=== PATIENT | female | born 1950 | race Caucasian/White ===

== ENCOUNTER 2025-11-10 21:45 | Inpatient (IN) | payer MEDICARE ==
[~2025-11-10] VITALS: Ht 160 cm; Wt 104.0 kg
[~2025-11-10 21:45] MED LIST: ATOR20TA PO; FURO1TAB31 PO; GLIP5TAB21 PO; INSLANTI SC; METF-929 PO; METO-158 PO; PIOG1TAB36 PO; VALS160T6 PO
--- NOTE | 2025-11-10 22:12 | ECG ---
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
--- NOTE | 2025-11-10 22:38 | ED.PDOC ---
History of Present Illness HPI Comments 75 year-old female who presents to the ED via EMS with a chief complaint of chest pain with associated symptoms of dizziness as of X1 hour ago. Patient states chest pain is constant, radiating across her chest. Patient reports being discharged from [facility] X6 hours ago, where she was admitted for Afib with associated symptoms of dizziness, SOB, and chest pain. Patient has a PMHx of Afib, HTN, Hyperlipidemia, DM, and CHF. Patient is taking Lasix. Upon ED arrival, patients BG levels were 547. Patient has no further complaints or modifying factors at this time. REVIEW OF SYSTEMS: General: No fever, no chills, or fatigue HEENT: No sore throat, no earache, no congestion, no neck pain. Cardiac: (+) chest pain, no palpitations Lungs: No shortness of breath, no cough. GI: No nausea, no vomiting, no diarrhea, no constipation, no abdominal pain : No dysuria, frequency, or urgency. No hematuria. Musculoskeletal: No joint pain , no joint swelling, no extremity edema. Skin: No rash, no itching. Neuro: (+) weakness, No headache, no dizziness (And as sated in HPI) PHYSICAL EXAM: General: Awake, alert and oriented. No acute distress. Skin: Skin in warm, dry and intact. Appropriate color for ethnicity. HEENT: The head is normocephalic and atraumatic. Conjunctivae are clear without exudates or hemorrhage. Sclera is non-icteric. Eyelids are normal in appearance without swelling or lesions. Oral mucosa is pink and moist Neck: The neck is supple with normal range of motion. No JVD. Cardiac: Heart rate and rhythm are normal. No murmurs, gallops, or rubs are auscultated. Respiratory: No signs of respiratory distress. Diminished breath sounds bilaterally. Abdominal: Abdomen is soft, non-tender without distention, guarding or rigidity. Bowel sounds are present and normoactive in all four quadrants. Extremities: 2+ pitting lower extremity edema Neurological: The patient is awake, alert and oriented to person, place, and time with normal speech. Speech is clear. There is no facial asymmetry. Chief Complaint: Chest Pain Time Seen by MD: 22:07 Reviewed Notes: Medications, Allergies Allergies: Coded Allergies: NO KNOWN ALLERGIES (Unverified , 11/10/25) Information Source: Patient Mode of Arrival: EMS Severity: Moderate Duration: Since onset Past Medical History PAST MEDICAL HISTORY: AFIB, CHF, DM, High Lipids, HTN Surgical History: Unknown Social History Smoker: Non-Smoker Alcohol: Denies ETOH Use Drugs: Denies Drug Use Lives In: Home Was a procedure done? Was a procedure done?: No EKG EKG : Pulse Rate (adult): 157 [place]: Normal Comments Supraventricular Tachycardia, 334 QT, 540 QTc Differential Dx Considerations may include: Cardiac tamponade, hypovolemia, tension pneumothorax, myocardial infarction, pulmonary embolism, hemorrhagic shock, trauma, cardiac arrhythmia, hypoglycemia, CVA, hypothermia, hypo anemia, hyperkalemia, other X-Ray, Labs, Meds, VS Vital Signs Date Time Temp Pulse Resp B/P (MAP) Pulse Ox O2 Delivery O2 Flow Rate FiO2 11/11/25 01:00 60 15 99/66 (77) 94 11/11/25 00:30 57 20 117/56 (76) 96 11/11/25 00:00 58 11/11/25 00:00 58 22 117/58 (77) 96 11/10/25 23:50 72 20 129/56 (80) 96 11/10/25 23:48 160 99/57 11/10/25 23:45 158 13 99/57 (71) 96 11/10/25 23:40 161 20 112/73 (86) 96 11/10/25 23:40 63 129/56 11/10/25 23:36 162 106/70 11/10/25 23:35 163 12 99/64 (76) 96 11/10/25 23:30 164 19 115/74 (88) 96 11/10/25 23:14 157 11/10/25 23:07 157 11/10/25 22:38 69 11/10/25 22:07 69 11/10/25 21:55 Nasal Cannula* 2 28 11/10/25 21:55 97.9 67 21 134/35 (68) 94 97.9 11/10/25 21:51 97.7 66 18 116/74 95 97.7 Lab Test 11/11/25 00:59 11/10/25 23:17 11/10/25 22:50 11/10/25 22:00 Range/Units Troponin I High Sensitivity 27 15 12 </=34 ng/L Blood Gas Specimen Type Arterial Blood Gas Sample Site Right radial Blood Gas Patient Temperature 31.0 Arterial Blood Date Drawn [id number] Arterial Blood pH 7.490 H 7.350-7.450 Arterial Blood Partial Pressure CO2 38.1 32.0-45.0 mmHg Arterial Blood Partial Pressure O2 99.9 83.0-108.0 mmHg Arterial Blood HCO3 28.4 H 21.0-28.0 mmol/L Arterial Blood Oxygen Saturation 97.6 94.0-98.0 % Arterial Blood Base Excess 4.8 H -2.0-3.0 mmol/L Arterial Blood Oxyhemoglobin 96.2 94.0-98.0 % Arterial Blood Carboxyhemoglobin 0.9 0.5-1.5 % Arterial Blood Methemoglobin 0.5 0.0-1.5 % Arterial Blood Deoxyhemoglobin 2.4 0.0-5.0 % Ariel Test Yes Blood Gas Total Hemoglobin 11.90 L 12.0-16.0 g/dL Blood Gas Liter Flow 2.00 Blood Gas Modality Nasal cannula FiO2 % 28.0 Blood Gas Comments Blood Gas Critical Value Read Back Yes Blood Gas Notified Whom carina Szymanski Blood Gas Notified Time [id number] Blood Gas Notified By shani Vallecillo White Blood Count 4.5 4.4-10.8 10^3/uL Red Blood Count 4.02 4.0-5.20 10^6/uL Hemoglobin 10.6 L 12.2-16.2 g/dL Hematocrit 33.4 L 36.0-46.0 % Mean Corpuscular Volume 83.1 80.0-100.0 fL Mean Corpuscular Hemoglobin 26.4 L 28.0-32.0 pg Mean Corpuscular Hemoglobin Concent 31.8 L 32.0-36.0 g/dL Red Cell Distribution Width 15.5 H 11.8-14.3 % Platelet Count 135 L 140-450 10^3/uL Mean Platelet Volume 9.5 6.9-10.8 fL Neutrophils (%) (Auto) 60.7 37.0-80.0 % Lymphocytes (%) (Auto) 20.0 10.0-50.0 % Monocytes (%) (Auto) 17.4 H 0.0-12.0 % Eosinophils (%) (Auto) 1.7 0.0-7.0 % Basophils (%) (Auto) 0.2 0.0-2.0 % Neutrophils # (Auto) 2.7 1.6-8.6 10 ^3/uL Lymphocytes # (Auto) 0.9 0.4-5.4 10 ^3/uL Monocytes # (Auto) 0.8 0-1.3 10 ^3/uL Eosinophils # (Auto) 0.1 0-0.8 10 ^3/uL Basophils # (Auto) 0 0-0.2 10 ^3/uL Nucleated Red Blood Cells 0.1 % Sodium Level 141 136-145 mmol/L Potassium Level 3.2 L 3.5-5.1 mmol/L Chloride Level 100 98-107 mmol/L Carbon Dioxide Level 30 20-31 mmol/L Anion Gap 11 5-15 Blood Urea Nitrogen 17 9-23 mg/dL Creatinine 0.89 0.550-1.02 mg/dL Glomerular Filtration Rate Calc 67 >90 mL/min BUN/Creatinine Ratio 19.1 10.0-20.0 Serum Glucose 351 H 74-106 mg/dL Calcium Level 9.7 8.7-10.4 mg/dL Magnesium Level 1.7 1.6-2.6 mg/dL B-Type Natriuretic Peptide 297.91 0-100 pg/mL Beta-Hydroxybutyric Acid 0.118 < 0.4 mmol/L Current Medications Medications (Trade) Dose Ordered Sig/Gail Route Start Time Stop Time Status Last Admin Metoprolol Tartrate (Lopressor) 5 mg Q5M IV 11/10/25 23:30 11/11/25 00:00 DC 11/10/25 23:48 Potassium Chloride (Klor-Con Tablet) 40 meq ONCE ONCE PO 11/11/25 00:15 11/11/25 00:17 DC 11/11/25 00:15 Potassium Chloride 100 ml @ 50 mls/hr Q2H IV 11/11/25 00:15 11/11/25 04:14 11/11/25 01:03 Time of 1ST Reevaluation: 22:19 Reevaluation 1ST: Unchanged Patient Education/Counseling: Need For Follow Up Family Education/Counseling: No Family Present SEPSIS Sepsis Screen Date sepsis recognized/suspect: Nov 10, 2025 Time Sepsis recognized/suspect: 2143 Recent Procedure: No On Antibiotic Therapy: No Respiratory Rate >20: No Heart Rate >90: No Temp<36 C (96.8 F) or >38.3 C: No SBP <90 or MAP <65 mmHG: No New Acute Mental Status Change: No Is the patient on CPAP, BIPAP,: No Physician Orders Electrocardigram (11/11/25 00:54) Chest Xray 1 View (11/10/25 23:05) Abg W/ Co-Ox (11/10/25 23:05) Urinalysis (11/10/25 23:05) Potassium Chl 20meq/100ml (11/11/25 00:15) Vital Signs Date Time Temp Pulse Resp B/P (MAP) Pulse Ox O2 Delivery O2 Flow Rate FiO2 11/11/25 01:00 60 15 99/66 (77) 94 11/11/25 00:30 57 20 117/56 (76) 96 11/11/25 00:00 58 11/11/25 00:00 58 22 117/58 (77) 96 11/10/25 23:50 72 20 129/56 (80) 96 11/10/25 23:48 160 99/57 11/10/25 23:45 158 13 99/57 (71) 96 11/10/25 23:40 161 20 112/73 (86) 96 11/10/25 23:40 63 129/56 11/10/25 23:36 162 106/70 11/10/25 23:35 163 12 99/64 (76) 96 11/10/25 23:30 164 19 115/74 (88) 96 11/10/25 23:14 157 11/10/25 23:07 157 11/10/25 22:38 69 11/10/25 22:07 69 11/10/25 21:55 Nasal Cannula* 2 28 11/10/25 21:55 97.9 67 21 134/35 (68) 94 97.9 11/10/25 21:51 97.7 66 18 116/74 95 97.7 Laboratory Tests Test 11/10/25 22:00 White Blood Count 4.5 10^3/uL (4.4-10.8) Medications Medications Dose Ordered Sig/Gail Route Start Time Stop Time Status Last Admin Dose Admin Metoprolol Tartrate 5 mg Q5M IV 11/10/25 23:30 11/11/25 00:00 DC 11/10/25 23:48 Potassium Chloride 40 meq ONCE ONCE PO 11/11/25 00:15 11/11/25 00:17 DC 11/11/25 00:15 Potassium Chloride 100 ml @ 50 mls/hr Q2H IV 11/11/25 00:15 11/11/25 04:14 11/11/25 01:03 Departure 1 Departure Time of Disposition: 00:07 Impression: Primary Impression: Chest pain Additional Impressions: Hyperglycemia CHF (congestive heart failure) Metabolic alkalosis Hypokalemia Anemia Disposition: 09 ADMITTED INPATIENT Condition: Serious Comments 75-year-old female who presented with chest pain During the ED observation she had an episode of SVT with a heart rate in the 160s Converted to sinus with improved heart rate after metoprolol. Blood pressure soft Patient admitted to hospitalist service for further treatment, evaluation and monitoring. Critical Care Note Critical Care Time?: Yes (35 min-critical care time only) Stability Stability form required: No Heart Score Heart Score: Heart Score Response (Comments) Value History Slightly Suspicious 0 EKG Normal 0 Age >65 2 Risk Factors >3 or Hx ASHD 2 Troponin Normal limit 0 Total 4 I personally scribed for CARINA MACE MD [email or web address]) on 11/10/25 at 22:38. Electronically submitted by Estelle Valera ([email or web address]). I personally scribed for CARINA MACE MD ([email or web address]) on 11/10/25 at 23:14. Electronically submitted by Estelle Valera ([email or web address]). CARINA MACE MD Nov 10, 2025 22:38
[2025-11-10 23:16] LABS: Hematocrit 33.4 % (36.0-46.0); Hemoglobin 10.6 g/dL (12.2-16.2); Mean Corpuscular Hemoglobin 26.4 pg (28.0-32.0); Mean Corpuscular Volume 83.1 fL (80.0-100.0); Nucleated Red Blood Cells % 0.1 %
[2025-11-10 23:21] LABS: Chloride 100 mmol/L (98-107); Sodium 141 mmol/L (136-145)
[2025-11-10 23:22] LABS: Anion Gap 11 (5-15); Calcium 9.7 mg/dL (8.7-10.4); Carbon Dioxide 30 mmol/L (20-31)
[2025-11-10 23:23] LABS: Potassium 3.2 mmol/L (3.5-5.1)
[2025-11-10 23:27] LABS: Base Excess 4.8 mmol/L (-2.0-3.0)
[2025-11-10 23:27] LABS: BUN/Creatinine Ratio 19.1 (10.0-20.0); Blood Urea Nitrogen 17 mg/dL (9-23)
[2025-11-10 23:28] LABS: Magnesium 1.7 mg/dL (1.6-2.6)
[2025-11-10 23:36] LABS: Glucose 351 mg/dL (74-106)
[2025-11-10] MEDS: METOPROLOL TARTRATE 1MG/1ML-5ML VIAL IV SCH (23:36)
--- NOTE | 2025-11-10 23:47 | DVH ---
CHEST RADIOGRAPH INDICATION: Chest pain TECHNIQUE: Single frontal view of the chest was obtained COMPARISON: None FINDINGS: Cardiac silhouette is enlarged. Mild prominence of the pulmonary vasculature. Mild bibasilar atelectasis. Bones and soft tissues demonstrate no significant abnormality. IMPRESSION: Mild pulmonary venous congestion.
[2025-11-11] VITALS (9 sets, daily range): BP systolic 118–143; BP diastolic 56–73; PULSE 57–86; RESP 17–19; TEMP 96.9–98; O2SAT 92–100
[2025-11-11] MEDS: POTASSIUM CHL 20 Meq TABLET PO ONE (00:15)
--- NOTE | 2025-11-11 00:20 | ECG ---
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
[2025-11-11] MEDS: POTASSIUM CHL 20MEQ/100ML 100 ML IV SCH (01:03)
[2025-11-11] MEDS ORDERED: ACETAMINOPHEN 325 MG TAB PO PRN (01:15)
[2025-11-11] MEDS ORDERED: NITROGLYCERIN 0.4 MG SL TAB SL PRN (01:15)
[2025-11-11] MEDS ORDERED: ONDANSETRON HCL 4 MG/2 ML VIAL IV PRN (01:15)
[2025-11-11] MEDS ORDERED: HYDROcodone-ACET 5/325MG TAB PO PRN (01:15)
[2025-11-11] MEDS ORDERED: MORPHINE SULFATE INJ 2 MG/ml SYRG IV PRN (01:15)
[2025-11-11] MEDS ORDERED: DEXTROSE (50%) 50ML SYRG IV PRN (01:15)
--- NOTE | 2025-11-11 01:27 | DVHHP2 ---
History of Present Illness Reason for Visit: Chest pain History of Present Illness 75-year-old female presents for evaluation of chest pain. Patient reports being admitted to [place] for three days for atrial fibrillation and being discharged today. When she got home today subsequently she developed pain across entire chest with associated dizziness she reports mild shortness for breath as well. No other acute complaints reported. On arrival patient's heart rate was noted to be in SVT and converted after a dose of metoprolol. Past Medical History AFib, hypertension, SVT, dyslipidemia, diabetes mellitus, CHF Family History Noncontributory Smoke: No ALCOHOL: none Drugs: None Lives: with Family Review of Systems Review of Systems Review of systems are currently negative otherwise addressed in HPI. Allergies: Coded Allergies: NO KNOWN ALLERGIES (Unverified , 11/10/25) Medications Current Medications Medications Dose Ordered Sig/Gail Route Start Time Stop Time Status Last Admin Dose Admin Potassium Chloride 100 ml @ 50 mls/hr Q2H IV 11/11/25 00:15 11/11/25 04:14 11/11/25 01:03 50 MLS/HR Metoprolol Tartrate 50 mg BID PO 11/11/25 10:00 Furosemide 40 mg BIDD PO 11/11/25 06:00 Apixaban 5 mg BID PO 11/11/25 10:00 Valsartan 80 mg DAILY PO 11/11/25 10:00 Atorvastatin Calcium 20 mg HS PO 11/11/25 22:00 Hydrochlorothiazide 12.5 mg DAILY PO 11/11/25 10:00 Diagnostic Test (Pha) 1 strip ACHS 11/11/25 07:00 Insulin Human Regular ACHS SC 11/11/25 07:00 Dextrose 50 ml UD PRN IV 11/11/25 01:15 Acetaminophen/ Hydrocodone Bitart 1 tab Q6HP PRN PO 11/11/25 01:15 Ondansetron HCl 4 mg Q4HP PRN IV 11/11/25 01:15 Acetaminophen 650 mg Q6HP PRN PO 11/11/25 01:15 Nitroglycerin 0.4 mg Q5MINP PRN SL 11/11/25 01:15 Morphine Sulfate 2 mg Q30M PRN IV 11/11/25 01:15 Exam Vital Signs Vital Signs Date Time Temp Pulse Resp B/P (MAP) Pulse Ox O2 Delivery O2 Flow Rate FiO2 11/11/25 01:13 56 11/10/25 23:48 99/57 11/10/25 21:55 Nasal Cannula* 2 28 11/10/25 21:55 97.9 21 94 97.9 Exam Gen: 75-year-old female in mild distress. Skin: Warm, dry, normal color and texture, no rash. HEENT: Normocephalic atraumatic, mucous membranes moist and pink. Neck: Cervical and supraclavicular nodes normal without enlargement, trachea is midline, thyroid gland is normal without masses. Pulmonary: Clear to auscultation and percussion bilaterally. Cardiac: Regular rate and rhythm. No murmur Abdomen: Soft, nontender, nondistended, bowel sounds present all 4 quadrants, no guarding, no rigidity, no organomegaly. Extremities: No cyanosis, clubbing, no edema Neuro: Cranial nerves II through XII grossly intact, normal affect and speech, no focal motor deficits. Labs/Xrays ORDERING PHYSICIAN: CARINA MACE MD PROCEDURE(s): CXR1 - CHEST XRAY 1 VIEW REASON: Chest pain ORDER NUMBER(s): [id number], ACCESSION NUMBER(s): [id number] CHEST RADIOGRAPH INDICATION: Chest pain TECHNIQUE: Single frontal view of the chest was obtained COMPARISON: None FINDINGS: Cardiac silhouette is enlarged. Mild prominence of the pulmonary vasculature. Mild bibasilar atelectasis. Bones and soft tissues demonstrate no significant abnormality. IMPRESSION: Mild pulmonary venous congestion. Labs Test 11/11/25 00:59 11/10/25 23:17 11/10/25 22:00 Range/Units Blood Gas Specimen Type Arterial Blood Gas Sample Site Right radial Blood Gas Patient Temperature 31.0 Arterial Blood Date Drawn [id number] Arterial Blood pH 7.490 H 7.350-7.450 Arterial Blood Partial Pressure CO2 38.1 32.0-45.0 mmHg Arterial Blood Partial Pressure O2 99.9 83.0-108.0 mmHg Arterial Blood HCO3 28.4 H 21.0-28.0 mmol/L Arterial Blood Oxygen Saturation 97.6 94.0-98.0 % Arterial Blood Base Excess 4.8 H -2.0-3.0 mmol/L Arterial Blood Oxyhemoglobin 96.2 94.0-98.0 % Arterial Blood Carboxyhemoglobin 0.9 0.5-1.5 % Arterial Blood Methemoglobin 0.5 0.0-1.5 % Arterial Blood Deoxyhemoglobin 2.4 0.0-5.0 % Ariel Test Yes Blood Gas Total Hemoglobin 11.90 L 12.0-16.0 g/dL Blood Gas Liter Flow 2.00 Blood Gas Modality Nasal cannula FiO2 % 28.0 Blood Gas Comments Blood Gas Critical Value Read Back Yes Blood Gas Notified Whom carina Szymanski Blood Gas Notified Time [id number] Blood Gas Notified By Concrete Worker shani barnes White Blood Count 4.5 4.4-10.8 10^3/uL Red Blood Count 4.02 4.0-5.20 10^6/uL Hemoglobin 10.6 L 12.2-16.2 g/dL Hematocrit 33.4 L 36.0-46.0 % Mean Corpuscular Volume 83.1 80.0-100.0 fL Mean Corpuscular Hemoglobin 26.4 L 28.0-32.0 pg Mean Corpuscular Hemoglobin Concent 31.8 L 32.0-36.0 g/dL Red Cell Distribution Width 15.5 H 11.8-14.3 % Platelet Count 135 L 140-450 10^3/uL Mean Platelet Volume 9.5 6.9-10.8 fL Neutrophils (%) (Auto) 60.7 37.0-80.0 % Lymphocytes (%) (Auto) 20.0 10.0-50.0 % Monocytes (%) (Auto) 17.4 H 0.0-12.0 % Eosinophils (%) (Auto) 1.7 0.0-7.0 % Basophils (%) (Auto) 0.2 0.0-2.0 % Neutrophils # (Auto) 2.7 1.6-8.6 10 ^3/uL Lymphocytes # (Auto) 0.9 0.4-5.4 10 ^3/uL Monocytes # (Auto) 0.8 0-1.3 10 ^3/uL Eosinophils # (Auto) 0.1 0-0.8 10 ^3/uL Basophils # (Auto) 0 0-0.2 10 ^3/uL Nucleated Red Blood Cells 0.1 % Sodium Level 141 136-145 mmol/L Potassium Level 3.2 L 3.5-5.1 mmol/L Chloride Level 100 98-107 mmol/L Carbon Dioxide Level 30 20-31 mmol/L Anion Gap 11 5-15 Blood Urea Nitrogen 17 9-23 mg/dL Creatinine 0.89 0.550-1.02 mg/dL Glomerular Filtration Rate Calc 67 >90 mL/min BUN/Creatinine Ratio 19.1 10.0-20.0 Serum Glucose 351 H 74-106 mg/dL Calcium Level 9.7 8.7-10.4 mg/dL Magnesium Level 1.7 1.6-2.6 mg/dL B-Type Natriuretic Peptide 297.91 0-100 pg/mL Beta-Hydroxybutyric Acid 0.118 < 0.4 mmol/L SEPSIS Sepsis Screen Date sepsis recognized/suspect: Nov 10, 2025 Time Sepsis recognized/suspect: 2154 Recent Procedure: No On Antibiotic Therapy: No Respiratory Rate >20: No Heart Rate >90: No Temp<36 C (96.8 F) or >38.3 C: No SBP <90 or MAP <65 mmHG: No New Acute Mental Status Change: No Is the patient on CPAP, BIPAP,: No Physician Orders Troponin-I Hs (11/11/25 00:54) Electrocardigram (11/11/25 00:54) Chest Xray 1 View (11/10/25 23:05) Abg W/ Co-Ox (11/10/25 23:05) Urinalysis (11/10/25 23:05) Potassium Chl 20meq/100ml (11/11/25 00:15) Basic Metabolic Panel (11/11/25 04:00) Metoprolol Tartrate Tablet (Lopressor Ta (11/11/25 10:00) Furosemide Tablet (Lasix Tablet) (11/11/25 06:00) Apixaban (Eliquis) (11/11/25 10:00) Valsartan (Diovan) (11/11/25 10:00) Atorvastatin (Lipitor) (11/11/25 22:00) Hydrochlorothiazide Tablet (Hydrochlorot (11/11/25 10:00) * Cardiology Consult (11/11/25 01:06) Glucose Blood (Accu-Chek Comfort Curve T (11/11/25 07:00) Insulin R (Human) (Insulin R) (11/11/25 07:00) Dextrose 50% Syringe (11/11/25 01:15) Admit (11/11/25 01:06) Hydrocodone-Acet 5/325mg Tab ([place] 5/32 (11/11/25 01:15) Ondansetron Hcl (Zofran) (11/11/25 01:15) Cardiac Diet-2gna,Lofat,Lochol (11/11/25 Breakfast) Echo 2d Mode Cardiac Dop (11/11/25 01:06) Condition: Fair (11/11/25 01:06) Acetaminophen Tablet (Tylenol Tablet) (11/11/25 01:15) Bedrest With Bathroom Privileg (11/11/25 01:06) Nitroglycerin Sublingual (Ntrostat Subli (11/11/25 01:15) Morphine Sulfate Injection (11/11/25 01:15) Stat Ekg For Chest Pain (11/11/25 01:06) Notify Of Changes From Base (11/11/25 01:06) Channel Executive For 24 Hours (11/11/25 01:06) Emergency Dysrhythmia Protocol (11/11/25 01:06) Rhythm Strips Once Every Shift (11/11/25 01:06) Oxygen By Nasal Cannula (11/11/25 01:06) Vital Signs Date Time Temp Pulse Resp B/P (MAP) Pulse Ox O2 Delivery O2 Flow Rate FiO2 11/11/25 01:13 56 11/11/25 00:00 58 11/10/25 23:48 160 99/57 11/10/25 23:40 63 129/56 11/10/25 23:36 162 106/70 11/10/25 23:14 157 11/10/25 23:07 157 11/10/25 22:38 69 11/10/25 22:07 69 11/10/25 21:55 Nasal Cannula* 2 28 11/10/25 21:55 97.9 67 21 134/35 (68) 94 97.9 11/10/25 21:51 97.7 66 18 116/74 95 97.7 Laboratory Tests Test 11/10/25 22:00 White Blood Count 4.5 10^3/uL (4.4-10.8) Medications Medications Dose Ordered Sig/Gail Route Start Time Stop Time Status Last Admin Dose Admin Metoprolol Tartrate 5 mg Q5M IV 11/10/25 23:30 11/11/25 00:00 DC 11/10/25 23:48 5 MG Potassium Chloride 40 meq ONCE ONCE PO 11/11/25 00:15 11/11/25 00:17 DC 11/11/25 00:15 40 MEQ Potassium Chloride 100 ml @ 50 mls/hr Q2H IV 11/11/25 00:15 11/11/25 04:14 11/11/25 01:03 50 MLS/HR Assessment/Plan Assessment/Plan Assessment Chest pain SVT Diabetes mellitus Congestive heart failure Hypertension Hypokalemia Plan Admit the patient to telemetry to the hospitalist Echocardiogram pending Cardiology consultation Resume home medications Replete electrolytes Continue treatment per orders Plan discussed with: Patient My Orders Orders - ELISE SIFUENTES AGACNP Procedure Category Date Status Time Basic Metabolic Panel LAB 11/11/25 Logged 04:00 Metoprolol Tartrate PHA 11/11/25 In Process Tablet (Lopressor Ta 10:00 Furosemide Tablet PHA 11/11/25 In Process (Lasix Tablet) 06:00 Apixaban (Eliquis) PHA 11/11/25 In Process 10:00 Valsartan (Diovan) PHA 11/11/25 In Process 10:00 Atorvastatin (Lipitor) PHA 11/11/25 In Process 22:00 Hydrochlorothiazide PHA 11/11/25 In Process Tablet (Hydrochlorot 10:00 * Cardiology Consult CONS 11/11/25 Transmitted 01:06 Glucose Blood PHA 11/11/25 In Process (Accu-Chek Comfort 07:00 Insulin R (Human) PHA 11/11/25 In Process (Insulin R) 07:00 Dextrose 50% Syringe PHA 11/11/25 In Process 01:15 Admit ADMIT 11/11/25 Transmitted 01:06 Hydrocodone-Acet PHA 11/11/25 In Process 5/325mg Tab ([place] 01:15 Ondansetron Hcl PHA 11/11/25 In Process (Zofran) 01:15 Cardiac DIET 11/11/25 Transmitted Diet-2gna,Lofat,Lochol Breakfast Echo 2d Mode Cardiac US 11/11/25 Logged DOP 01:06 Condition: Fair CARRI[facility]O 11/11/25 In Process 01:06 Acetaminophen Tablet [facility] 11/11/25 In Process (Tylenol Tablet) 01:15 Bedrest With Bathroom [facility] 11/11/25 In Process Privileg 01:06 Nitroglycerin [facility] 11/11/25 In Process Sublingual (Ntrostat 01:15 Morphine Sulfate [facility] 11/11/25 In Process Injection 01:15 Stat Ekg For Chest [facility] 11/11/25 In Process Pain 01:06 Notify Md Of Changes [facility] 11/11/25 In Process From Base 01:06 Channel Executive For [facility] 11/11/25 In Process 24 Hours 01:06 Emergency Dysrhythmia [facility] 11/11/25 In Process Protocol 01:06 Rhythm Strips Once [facility] 11/11/25 In Process Every Shift 01:06 Oxygen By Nasal 11/11/25 Transmitted Cannula 01:06 Date of Service: Nov 11, 2025 Billing Provider: ELISE SIFUENTES Common Visit Codes: [id number] INP/OBS CARE (HIGH) ELISE SIFUENTES Nov 11, 2025 01:27
[2025-11-11 02:27] LABS: Urine Budding Yeast OCCASIONAL /hpf (None Seen); Urine Protein, UAD TRACE (Negative)
[2025-11-11] MEDS ORDERED: APIX5TAB PO (04:53)
[2025-11-11] MEDS ORDERED: LOSA-535 PO (04:53)
[2025-11-11] MEDS ORDERED: DAPA1TAB4 PO (04:53)
[2025-11-11] MEDS ORDERED: METF-370 PO (04:53)
[2025-11-11] MEDS: ACCU-CHEK COMFORT CURVE STRIP VI SCH (05:26)
[2025-11-11] MEDS: FUROSEMIDE 40 MG TAB PO SCH (05:26)
[2025-11-11] MEDS: InsuLIN REG 1unit/0.01ml Soln (100units/ml) SC SCH (05:30)
[2025-11-11 06:05] LABS: Hematocrit 31.9 % (36.0-46.0); Hemoglobin 10.3 g/dL (12.2-16.2); Mean Corpuscular Hemoglobin 26.7 pg (28.0-32.0); Mean Corpuscular Volume 82.4 fL (80.0-100.0); Nucleated Red Blood Cells % 0.0 %
[2025-11-11 06:22] LABS: Anion Gap 9 (5-15); Chloride 100 mmol/L (98-107); Potassium 3.7 mmol/L (3.5-5.1); Sodium 141 mmol/L (136-145)
[2025-11-11 06:24] LABS: Calcium 9.6 mg/dL (8.7-10.4)
[2025-11-11 06:28] LABS: BUN/Creatinine Ratio 22.9 (10.0-20.0); Blood Urea Nitrogen 19 mg/dL (9-23)
[2025-11-11 06:30] LABS: Carbon Dioxide 32 mmol/L (20-31); Glucose 260 mg/dL (74-106)
[2025-11-11] MEDS: MAGNESIUM SULFATE 1GM/100ML 100 ML IV ONE (08:46)
[2025-11-11] MEDS: VALSARTAN 80 MG TAB PO SCH (08:47)
[2025-11-11] MEDS: POTASSIUM EFFERVESENT TAB 25 MEQ PO ONE (08:47)
[2025-11-11] MEDS: APIXABAN 5 MG TAB PO SCH (08:47)
[2025-11-11] MEDS: METOPROLOL TARTRATE 50 MG TAB PO SCH (08:48)
[2025-11-11] MEDS: hydroCHLOROthiazide 25 MG TAB PO SCH (08:48)
--- NOTE | 2025-11-11 11:18 | DVHINCON2 ---
Date Seen: Nov 11, 2025 Referring Physician MIAH Mueller Reason for Consultation Svt History of Present Illness Patient is a 75-year-old female was brought to the hospital with a chief complaint of chest pain and shortness of Breath. Patient reported that she recently discharged from [facility] where she was diagnosed with atrial fibrillation, congestive heart failure. About a week ago patient had worsening shortness of breath Functional Class III and at that time went to [facility] Emergency and was admitted for further evaluation. She came home yesterday and while lying down started to have chest pain with the left side of the chest was radiated across the chest, pressure-like, lasted for about half an hour and relieved on its own. Patient had associated shortness of breath and had mild orthopnea, bilateral lower extremity swelling. On arrival to the hospital 1st EKG showed patient to be in supraventricular tachycardia, repeat EKG showed sinus rhythm with a PACs and later showed sinus rhythm. On telemetry patient was seen to be in episodes of atrial fibrillation rate controlled. Patient denied any chest pain while in the hospital and no shortness a breath while at rest on room air. Past Medical History Insulin-dependent type 2 diabetes mellitus, atrial fibrillation recently diagnos ed, hyperlipidemia, congestive heart failure Past Surgical History Denies Family History: Cardiovascular disease G8 FATHER Family History No significant family history Social History Denies smoking, alcohol, drug use Allergies: Coded Allergies: NO KNOWN ALLERGIES (Unverified , 11/10/25) Home Meds Reported Medications Insulin Glargine (Lantus) 100 Unit/Ml Inj, 100 UNIT SC, INJ 11/11/25 Metoprolol Tartrate (Metoprolol Tartrate) 50 Mg Tab, 50 MG PO BID, TAB 11/11/25 Metformin Hydrochloride (Metformin Hcl) 500 Mg Tab, 1000 MG PO DAILY for 30 Days, MG 11/11/25 Losartan Potassium (Losartan Potassium) 100 Mg Tab, 100 MG PO DAILY for 30 Days, MG 11/11/25 Furosemide (Lasix) 40 Mg Tab, 40 MG PO BID, TAB 11/11/25 Dapagliflozin Propanediol (Farxiga) 10 Mg Tab, 10 MG PO, TAB 11/11/25 Atorvastatin Calcium (Lipitor) 20 Mg Tab, 1 TAB PO DAILY, #90 TAB 1 Refill 11/11/25 Apixaban Base (ELIQUIS) 5 Mg Tab, 10 MG PO DAILY for 7 Days, #14 TAB 10MG BID X 7 DAYS THEN 5MG PO BID FOR AT LEAST 6 MONTHS FOR DVT/PE TREATMENT 11/11/25 Current Medications Current Medications Medications (Trade) Dose Ordered Sig/Gail Route PRN Reason Start Time Stop Time Status Last Admin Metoprolol Tartrate (Lopressor) 5 mg Q5M IV 11/10/25 23:30 11/11/25 00:00 DC 11/10/25 23:48 Potassium Chloride 100 ml @ 50 mls/hr Q2H IV 11/11/25 00:15 11/11/25 04:14 DC 11/11/25 03:50 Metoprolol Tartrate (Lopressor Tablet) 50 mg BID PO 11/11/25 10:00 11/11/25 08:48 Furosemide (Lasix Tablet) 40 mg BIDD PO 11/11/25 06:00 11/11/25 05:26 Apixaban (Eliquis) 5 mg BID PO 11/11/25 10:00 11/11/25 08:47 Valsartan (Diovan) 80 mg DAILY PO 11/11/25 10:00 11/11/25 08:47 Atorvastatin Calcium (Lipitor) 20 mg HS PO 11/11/25 22:00 Hydrochlorothiazide (hydroCHLOROthiazide TABLET) 12.5 mg DAILY PO 11/11/25 10:00 11/11/25 10:56 DC 11/11/25 08:48 Diagnostic Test (Pha) (Accu-Chek Comfort Curve T) 1 strip ACHS 11/11/25 07:00 11/11/25 05:26 Insulin Human Regular (InsuLIN R) ACHS SC 11/11/25 07:00 11/11/25 05:30 Dextrose 50 ml UD PRN IV Blood Sugar LESS THAN 60 11/11/25 01:15 Acetaminophen/ Hydrocodone Bitart ([place] 5/325MG Tab) 1 tab Q6HP PRN PO MODERATE PAIN (4-6 PAIN SCALE) 11/11/25 01:15 Ondansetron HCl (Zofran) 4 mg Q4HP PRN IV NAUSEA / VOMITING 11/11/25 01:15 Acetaminophen (Tylenol Tablet) 650 mg Q6HP PRN PO PAIN SCALE 1-3 OR TEMP>100.4 11/11/25 01:15 Nitroglycerin (Ntrostat Sublingual) 0.4 mg Q5MINP PRN SL FOR CHEST PAIN 11/11/25 01:15 Morphine Sulfate 2 mg Q30M PRN IV FOR CHEST PAIN 11/11/25 01:15 Review of Systems Patient seen and examined with the bedside Reports shortness of breath has improved and is able to walk to the restroom without feeling short of breath Denies any chest pain Complains of dry cough with some episodes of white clear phlegm which has been going on for the last 2 months after she went on a cruise Vital Signs Vital Signs Date Time Temp Pulse Resp B/P (MAP) Pulse Ox O2 Delivery O2 Flow Rate FiO2 11/11/25 08:48 139/73 11/11/25 08:48 63 11/11/25 08:42 97.9 19 92 97.9 11/11/25 07:40 Room Air* 0 21 Physical Exam Skin - Patients skin is warm and dry. HEENT - normocephalic, atraumatic, moist mucous membranes, no scleral icterus, no conjunctival pallor. Neck - full ROM, no LAD, mildly elevated jugular venous pulsation Pulmonary - B/L clear breath sounds with a minimal basilar rales cardiovascular - regular S1,S2 heard. peripheral pulses normal radial 2+, pedal 2+. Bilateral lower extremity 2+ pitting edema GI - soft, nontender abdomen. no hepatospleenomegaly. Bowel sounds normoactive Neurological - Patient is A/O X 4 . Bilateral upper extremity strength 5/5, bilateral lower extremity strength 5/5, no facial droop, normal speech, no tremor, no sensory deficiets. Labs/Diagnostic Data Labs Test 11/11/25 05:16 11/11/25 05:09 11/11/25 01:31 11/11/25 00:59 Range/Units POC Glucose 258 H 70-106 mg/dl White Blood Count 4.1 L 4.4-10.8 10^3/uL Red Blood Count 3.87 L 4.0-5.20 10^6/uL Hemoglobin 10.3 L 12.2-16.2 g/dL Hematocrit 31.9 L 36.0-46.0 % Mean Corpuscular Volume 82.4 80.0-100.0 fL Mean Corpuscular Hemoglobin 26.7 L 28.0-32.0 pg Mean Corpuscular Hemoglobin Concent 32.4 32.0-36.0 g/dL Red Cell Distribution Width 15.8 H 11.8-14.3 % Platelet Count 134 L 140-450 10^3/uL Mean Platelet Volume 10.0 6.9-10.8 fL Neutrophils (%) (Auto) 56.4 37.0-80.0 % Lymphocytes (%) (Auto) 24.8 10.0-50.0 % Monocytes (%) (Auto) 17.4 H 0.0-12.0 % Eosinophils (%) (Auto) 1.2 0.0-7.0 % Basophils (%) (Auto) 0.2 0.0-2.0 % Neutrophils # (Auto) 2.3 1.6-8.6 10 ^3/uL Lymphocytes # (Auto) 1.0 0.4-5.4 10 ^3/uL Monocytes # (Auto) 0.7 0-1.3 10 ^3/uL Eosinophils # (Auto) 0 0-0.8 10 ^3/uL Basophils # (Auto) 0 0-0.2 10 ^3/uL Nucleated Red Blood Cells 0.0 % Sodium Level 141 136-145 mmol/L Potassium Level 3.7 3.5-5.1 mmol/L Chloride Level 100 98-107 mmol/L Carbon Dioxide Level 32 H 20-31 mmol/L Anion Gap 9 5-15 Blood Urea Nitrogen 19 9-23 mg/dL Creatinine 0.83 0.550-1.02 mg/dL Glomerular Filtration Rate Calc 73 >90 mL/min BUN/Creatinine Ratio 22.9 H 10.0-20.0 Serum Glucose 260 H 74-106 mg/dL Hemoglobin A1c 10.8 H <5.7 % A1C Calcium Level 9.6 8.7-10.4 mg/dL Vitamin D 25-Hydroxy 46.1 30.0-100 ng/mL Thyroid Stimulating Hormone (TSH) 1.24 0.55-4.78 uIU/mL Urine Color Light-yellow Yellow Urine Clarity Turbid H Clear Urine pH 5.0 5.0-9.0 Urine Specific [place] 1.012 1.001-1.035 Urine Protein Trace H Negative Urine Ketones Negative Negative Urine Blood 3+ H Negative /uL Urine Nitrite Negative Negative Urine Bilirubin Negative Negative Urine Urobilinogen Normal Negative mg/dL Urine Leukocyte Esterase Negative Negative /uL Urine RBC 225 0 - 4 /hpf Urine Microscopic WBC 5 0-5 /HPF Urine Squamous Epithelial Cells Few <5 /hpf Urine Bacteria None seen None Seen /hpf Urine Hyaline Casts Many 0 - 2 /lpf Urine Yeast (Budding) Occasional None Seen /hpf Urine Glucose Trace Normal mg/dL Troponin I High Sensitivity 27 </=34 ng/L Test 11/10/25 23:17 11/10/25 22:00 Range/Units Blood Gas Specimen Type Arterial Blood Gas Sample Site Right radial Blood Gas Patient Temperature 31.0 Arterial Blood Date Drawn [id number] Arterial Blood pH 7.490 H 7.350-7.450 Arterial Blood Partial Pressure CO2 38.1 32.0-45.0 mmHg Arterial Blood Partial Pressure O2 99.9 83.0-108.0 mmHg Arterial Blood HCO3 28.4 H 21.0-28.0 mmol/L Arterial Blood Oxygen Saturation 97.6 94.0-98.0 % Arterial Blood Base Excess 4.8 H -2.0-3.0 mmol/L Arterial Blood Oxyhemoglobin 96.2 94.0-98.0 % Arterial Blood Carboxyhemoglobin 0.9 0.5-1.5 % Arterial Blood Methemoglobin 0.5 0.0-1.5 % Arterial Blood Deoxyhemoglobin 2.4 0.0-5.0 % Ariel Test Yes Blood Gas Total Hemoglobin 11.90 L 12.0-16.0 g/dL Blood Gas Liter Flow 2.00 Blood Gas Modality Nasal cannula FiO2 % 28.0 Blood Gas Comments Blood Gas Critical Value Read Back Yes Blood Gas Notified Whom francheska Szymanski Blood Gas Notified Time [id number] Blood Gas Notified By Envelope Fold Operator shani barnes Magnesium Level 1.7 1.6-2.6 mg/dL B-Type Natriuretic Peptide 297.91 0-100 pg/mL Beta-Hydroxybutyric Acid 0.118 < 0.4 mmol/L Assessment Acute on chronic congestive heart failure with diastolic dysfunction, NYHA class 3 ( echo from [facility] showed mild LVH, LVEF 65-70% with grade 2 diastolic dysfunction with a high left atrial and right atrial pressure, mild calcific MS) Arrhythmia SVT on presentation, controlled Recently diagnosed atrial fibrillation on Eliquis Hypertensive heart disease with heart failure Insulin-dependent type 2 diabetes mellitus Plan/Recommendation - diuresis with the Lasix 40 b.i.d. IV - strict I&Os - continue rate control with beta roxana - continue anticoagulation with the Eliquis - valsartan, Jardiance Discussed with the patient for over 21 minutes. Plan discussed with Dr. Butcher Plan discussed with: Patient, Daughter NYHA Physical activity limitations: Class3(Marked) ordinary Date of Service: Nov 11, 2025 Billing Provider: YANET BUTCHER Sr., MD Cardiology Common Codes: [id number] INP/OBS CARE (High) KRISTY MAX RESIDENT Nov 11, 2025 11:18
--- NOTE | 2025-11-11 13:30 | DVH ---
XY CHEST TWO VIEWS ROUTINE CLINICAL HISTORY: cough COMPARISON: XY CHEST XRAY 1 VIEW on DOS: 11/10/25 TECHNIQUE: Frontal and lateral view of the chest was obtained FINDINGS: Lines and Tubes: None Lungs: No focal consolidation. Pleura: Small left pleural effusion Cardiomediastinal contours:Cardiomegaly Bones: No acute osseous abnormality. IMPRESSION: Mild pulmonary vascular congestion. Small left pleural effusion
--- NOTE | 2025-11-11 14:21 | ECG ---
[facility] Test Date: 2025-11-11 Test Time: 01:13:38 Pat Name: DARWIN BRANDT [facility] F Facility Maintenance Technician: JEFF : 1950 Requested By: CARINA MACE Order Number: [id number] Reading MD: Corey Owen Measurements Intervals [place] Rate: 56 P: 10 ND: 166 QRS: 5 QRSD: 85 T: -5 QT: 468 QTc: 452 Interpretive Statements Sinus rhythm Atrial premature complex Low voltage, precordial leads Borderline T abnormalities, diffuse leads Electronically Signed On 11-12-2025 17:24:57 PST by Corey Owen Please click the below link to view image of tracing.
[2025-11-11] MEDS: FUROSEMIDE 40 MG/4 ML VIAL IV SCH (17:19)
[2025-11-11] MEDS: EMPAGLIFLOZIN 10 MG TAB PO SCH (17:20)
[2025-11-11] MEDS: LORATADINE 10 MG TAB PO ONE (17:20)
[2025-11-11] MEDS: FAMOTIDINE 20 MG TAB PO ONE (17:20)
[2025-11-11] MEDS: INSULIN LISPRO (HUMAN) 100 UNITS/ML ML SC SCH (17:27)
--- NOTE | 2025-11-11 18:45 | DVHPNRES ---
Progress Note Date Seen: Nov 11, 2025 Resident Creating Document: ANA YIP RESIDENT Medical Necessity Reason Pt with a Central, PICC or Fol: No Subjective Review of Systems This is a 75-year-old female brought to hospital with a chief complaint of chest pain associated with shortness of breaths. Recently discharged from [facility] with diagnosed atrial failure and congestive heart failure. Patient chest pain day before admission which is 7/10 intensity, aggravated on walking or exercise, no relieving factor, the chest wall but no radiation. Patient also bilateral leg swelling for week which is worsen day by day. Patient also having orthopnea, exertional dyspnea. On arrival EKG shows supraventricular shows sinus rhythm with a PACs and letter it sinus rhythm after metoprolol given. Patient admitted on telemetry and cardiology consulted for atrial fibrillation and rate controlled. Patient history of to SVT last year follow-up with cardiology( dr. Almaraz) not on any medication. Past Medical History AFib, hypertension, SVT, dyslipidemia, diabetes mellitus, CHF Family History : Noncontributory Personal history: PCP smoker( smoking) Drugs: Denies any EtOH or illicit drug use Allergy: No known allergy PCP: Dr. Hinton. Evaluated in bedside today. Patient denies any acute distress. On examination lifestyle lower extremity 2+ edema noted. Cardiology consult appreciated. Objective vital signs Vital Sign Date Time Temp Pulse Resp B/P (MAP) Pulse Ox O2 Delivery O2 Flow Rate FiO2 11/11/25 17:19 130/72 11/11/25 16:31 97.7 64 19 100 97.7 11/11/25 07:40 Room Air* 0 21 Total Intake and Output 11/10/25 11/10/25 11/11/25 15:00 23:00 07:00 Intake Total 200 ml Balance 200 ml medications Current Medications Medications Dose Ordered Sig/Gail Route Start Time Stop Time Status Last Admin Dose Admin Metoprolol Tartrate 50 mg BID PO 11/11/25 10:00 11/11/25 08:48 50 MG Apixaban 5 mg BID PO 11/11/25 10:00 11/11/25 08:47 5 MG Valsartan 80 mg DAILY PO 11/11/25 10:00 11/11/25 08:47 80 MG Atorvastatin Calcium 20 mg HS PO 11/11/25 22:00 Diagnostic Test (Pha) 1 strip ACHS 11/11/25 07:00 11/11/25 17:19 1 STRIP Insulin Human Regular ACHS SC 11/11/25 07:00 11/11/25 17:22 8 UNITS Dextrose 50 ml UD PRN IV 11/11/25 01:15 Acetaminophen/ Hydrocodone Bitart 1 tab Q6HP PRN PO 11/11/25 01:15 Ondansetron HCl 4 mg Q4HP PRN IV 11/11/25 01:15 Acetaminophen 650 mg Q6HP PRN PO 11/11/25 01:15 Nitroglycerin 0.4 mg Q5MINP PRN SL 11/11/25 01:15 Morphine Sulfate 2 mg Q30M PRN IV 11/11/25 01:15 Furosemide 40 mg BIDD IV 11/11/25 18:00 11/11/25 17:19 40 MG Insulin Glargine 15 units HS SC 11/11/25 22:00 Insulin Human Lispro 3 units AC SC 11/11/25 17:00 11/11/25 17:27 3 UNITS Empaglifozin 10 mg DAILY PO 11/11/25 16:00 11/11/25 17:20 10 MG Famotidine 20 mg Q12HR PO 11/12/25 10:00 Loratadine 10 mg DAILY PO 11/12/25 10:00 Fluticasone Propionate 50 mcg Q12HR EACHNOSTRI 11/11/25 22:00 Examination Skin - Patients skin is warm and dry. HEENT - normocephalic, atraumatic, moist mucous membranes, no scleral icterus, no conjunctival pallor. Neck - full ROM, no LAD, mildly elevated jugular venous pulsation Pulmonary - B/L clear breath sounds with a minimal basilar rales cardiovascular - regular S1,S2 heard. peripheral pulses normal radial 2+, pedal 2+. Bilateral lower extremity 2+ pitting edema GI - soft, nontender abdomen. no hepatospleenomegaly. Bowel sounds normoactive Neurological - Patient is A/O X 4 . Bilateral upper extremity strength 5/5, bilateral lower extremity strength 5/5, no facial droop, normal speech, no tremor, no sensory deficiets. laboratory and microbiology Laboratory Tests 11/11/25 05:09 Test 11/11/25 05:09 Range/Units Serum Glucose 260 H 74-106 mg/dL Microbiology Date/Time Source Procedure Growth Status 11/11/25 04:00 Nose MRSA Screen - Final Complete Problem List/Assessment/Plan Problem List/Assessment/Plan Acute on chronic congestive heart failure with diastolic dysfunction, NYHA class III ( Echo from [facility] showed mild LVH, LVEF 65-70% with grade 2 diastolic dysfunction with a high left atrial and right atrial pressure, mild calcific MS) Arrhythmia SVT on presentation, controlled Recently diagnosed atrial fibrillation Hypertensive heart disease with heart failure Troponin 12 BNP 297.81 Lasix IV strict I&Os Metoprolol Eliquis Valsartan, Jardiance Nitroglycerin sublingually for chest pain Morphine as needed for chest Monitor blood pressure and labs Insulin-dependent type 2 diabetes mellitus Mixed hyperlipidemia Monitor blood sugar Basal bolus insulin Atorvastatin HbA1c Chronic persistent cough X-ray chest shows no acute cardiopulmonary disease QuantiFERON TB gold test Influenza and COVID test Famotidine Fluticasone nasal Loratadine GI prophylaxis: Famotidine Diet: Carbohydrate consistent DVT prophylaxis: Eliquis Goals of care discussion. More than 23 minute spent with patient, nok- daughter(Yuli) Case discussed with Dr. Casillas Plan discussed with: Patient, Daughter (Yuli), Other My Orders My Orders Orders - ANA YIP Procedure Category Date Status Time Chest Two Views XY 11/11/25 Resulted Routine 11:42 Visit Coding STANDARD RES Billing Provider: CLEVE CASILLAS MD Date of Service if different f: Nov 11, 2025 Common Visit Codes: [id number] INP/OBS CARE (HIGH) Secondary Visit Codes: [id number] CARE PLAN 30 MINUTES ANA YIP Nov 11, 2025 18:45
[2025-11-11 20:50] LABS: COVID19 ANTIGEN SOFIA FIA NEGATIVE (NEGATIVE)
[2025-11-11] MEDS: INSULIN LANTUS (GLARGINE) 1 /0.01ml (100units/ml) SC SCH (21:53)
[2025-11-11] MEDS: ATORVASTATIN 20 MG TAB PO SCH (21:54)
[2025-11-11] MEDS: FLUTICASONE PROP NASAL SPR 0.05 % (50MCG) 16GM EACHNOSTRI SCH (21:55)
[2025-11-12] VITALS (9 sets, daily range): BP systolic 113–141; BP diastolic 58–83; PULSE 58–80; RESP 16–20; TEMP 97.5–98.1; O2SAT 91–97
[2025-11-12 06:09] LABS: Hematocrit 33.9 % (36.0-46.0); Hemoglobin 10.9 g/dL (12.2-16.2); Mean Corpuscular Hemoglobin 26.8 pg (28.0-32.0); Mean Corpuscular Volume 83.0 fL (80.0-100.0); Nucleated Red Blood Cells % 0.1 %
[2025-11-12 06:32] LABS: Alanine Aminotransferase 28 U/L (7-40); Anion Gap 9 (5-15); BUN/Creatinine Ratio 23.5 (10.0-20.0); Blood Urea Nitrogen 20 mg/dL (9-23); Calcium 10.4 mg/dL (8.7-10.4); Chloride 100 mmol/L (98-107); Potassium 3.6 mmol/L (3.5-5.1); Sodium 143 mmol/L (136-145); Total Protein 6.8 g/dL (5.7-8.2)
[2025-11-12 06:34] LABS: Albumin 3.7 g/dL (3.2-4.8); Bilirubin, Total 0.7 mg/dL (0.2-1.0)
[2025-11-12 06:35] LABS: Alkaline Phosphatase 121 U/L (46-116); Carbon Dioxide 34 mmol/L (20-31); Glucose 149 mg/dL (74-106)
[2025-11-12] MEDS: FAMOTIDINE 20 MG TAB PO SCH (09:32)
[2025-11-12] MEDS: LORATADINE 10 MG TAB PO SCH (09:33)
--- NOTE | 2025-11-12 12:36 | DVHPN2 ---
Progress Note Date Seen: Nov 12, 2025 Resident Creating Document: KRISTY MAX RESIDENT Medical Necessity Reason Pt with a Central, PICC or Fol: No Subjective Review of Systems Patient reports shortness of breath has improved significantly No orthopnea or PND and had good sleep last night Objective vital signs Vital Sign Date Time Temp Pulse Resp B/P (MAP) Pulse Ox O2 Delivery O2 Flow Rate FiO2 11/12/25 10:33 78 11/12/25 09:33 148/61 11/12/25 09:00 97.5 18 93 97.5 11/12/25 07:30 Room Air* 0 21 Total Intake and Output 11/11/25 11/11/25 11/12/25 15:00 23:00 07:00 Intake Total 300 ml 300 ml Balance 300 ml 300 ml medications Current Medications Medications Dose Ordered Sig/Gail Route Start Time Stop Time Status Last Admin Dose Admin Metoprolol Tartrate 50 mg BID PO 11/11/25 10:00 11/12/25 09:33 50 MG Apixaban 5 mg BID PO 11/11/25 10:00 11/12/25 09:30 5 MG Valsartan 80 mg DAILY PO 11/11/25 10:00 11/12/25 09:32 80 MG Atorvastatin Calcium 20 mg HS PO 11/11/25 22:00 11/11/25 21:54 20 MG Diagnostic Test (Pha) 1 strip ACHS 11/11/25 07:00 11/12/25 11:54 1 STRIP Insulin Human Regular ACHS SC 11/11/25 07:00 11/12/25 11:53 4 UNITS Dextrose 50 ml UD PRN IV 11/11/25 01:15 Acetaminophen/ Hydrocodone Bitart 1 tab Q6HP PRN PO 11/11/25 01:15 Ondansetron HCl 4 mg Q4HP PRN IV 11/11/25 01:15 Acetaminophen 650 mg Q6HP PRN PO 11/11/25 01:15 Nitroglycerin 0.4 mg Q5MINP PRN SL 11/11/25 01:15 Morphine Sulfate 2 mg Q30M PRN IV 11/11/25 01:15 Furosemide 40 mg BIDD IV 11/11/25 18:00 11/12/25 05:57 40 MG Insulin Glargine 15 units HS SC 11/11/25 22:00 11/11/25 21:53 15 UNITS Insulin Human Lispro 3 units AC SC 11/11/25 17:00 11/12/25 11:53 3 UNITS Empaglifozin 10 mg DAILY PO 11/11/25 16:00 11/12/25 09:33 10 MG Famotidine 20 mg Q12HR PO 11/12/25 10:00 11/12/25 09:32 20 MG Loratadine 10 mg DAILY PO 11/12/25 10:00 11/12/25 09:33 10 MG Fluticasone Propionate 50 mcg Q12HR EACHNOSTRI 11/11/25 22:00 11/12/25 11:50 50 MCG Examination Skin - Patients skin is warm and dry. HEENT - normocephalic, atraumatic, moist mucous membranes, no scleral icterus, no conjunctival pallor. Neck - full ROM, no LAD, mildly elevated jugular venous pulsation Pulmonary - B/L clear breath sounds cardiovascular - regular S1,S2 heard. peripheral pulses normal radial 2+, pedal 2+. Bilateral lower extremity trace pitting edema GI - soft, nontender abdomen. no hepatospleenomegaly. Bowel sounds normoactive Neurological - Patient is A/O X 4 . Bilateral upper extremity strength 5/5, bilateral lower extremity strength 5/5, no facial droop, normal speech, no tremor, no sensory deficiets. laboratory and microbiology Laboratory Tests 11/12/25 05:42 Test 11/12/25 05:42 Range/Units Serum Glucose 149 H 74-106 mg/dL Microbiology Date/Time Source Procedure Growth Status 11/11/25 04:00 Nose MRSA Screen - Final Complete Problem List/Assessment/Plan Problem List/Assessment/Plan Acute on chronic congestive heart failure with diastolic dysfunction, NYHA class 3 ( echo from [facility] showed mild LVH, LVEF 65-70% with grade 2 diastolic dysfunction with a high left atrial and right atrial pressure, mild calcific MS) Arrhythmia SVT on presentation, controlled Recently diagnosed atrial fibrillation on Eliquis Hypertensive heart disease with heart failure Insulin-dependent type 2 diabetes mellitus Plan/Recommendation - continue with diuresis, recommend Lasix at home - strict I&Os - continue rate control with beta roxana - continue anticoagulation with the Eliquis - continue with ARB, SGLT2 inhibitor at home, blood pressure tolerates add MRA No further cardiology workup required. Patient is advised to follow up with PCP and primary de icer finisher Discussed with the patient for over 21 minutes. Plan discussed with Dr. Owen Plan discussed with: Patient, Spouse My Orders My Orders Orders - KRISTY MAX Procedure Category Date Status Time Empagliflozin PHA 11/11/25 In Process (Jardiance) 16:00 KRISTY MAX Nov 12, 2025 12:36
[2025-11-12] MEDS: INSULIN LANTUS (GLARGINE) 1 /0.01ml (100units/ml) SC SCH (17:00)
--- NOTE | 2025-11-12 17:47 | DVHPNRES ---
Progress Note Date Seen: Nov 12, 2025 Resident Creating Document: ANA YIP RESIDENT Medical Necessity Reason Pt with a Central, PICC or Fol: No Subjective Review of Systems This is a 75-year-old female brought to hospital with a chief complaint of chest pain associated with shortness of breaths. Recently discharged from [facility] with diagnosed atrial failure and congestive heart failure. Patient chest pain day before admission which is 7/10 intensity, aggravated on walking or exercise, no relieving factor, the chest wall but no radiation. Patient also bilateral leg swelling for week which is worsen day by day. Patient also having orthopnea, exertional dyspnea. On arrival EKG shows supraventricular shows sinus rhythm with a PACs and letter it sinus rhythm after metoprolol given. Patient admitted on telemetry and cardiology consulted for atrial fibrillation and rate controlled. Patient history of to SVT last year follow-up with cardiology( dr. Almaraz) not on any medication. Past Medical History AFib, hypertension, SVT, dyslipidemia, diabetes mellitus, CHF Family History : Noncontributory Personal history: PCP smoker( smoking) Drugs: Denies any EtOH or illicit drug use Allergy: No known allergy PCP: Dr. Hinton. Evaluated in bedside today. Patient denies any new complaint. Patient bilateral leg edema improving with current diuretics. See consult appreciated. Objective vital signs Vital Sign Date Time Temp Pulse Resp B/P (MAP) Pulse Ox O2 Delivery O2 Flow Rate FiO2 11/12/25 16:33 97.8 63 18 141/67 (91) 94 97.8 11/12/25 07:30 Room Air* 0 21 Total Intake and Output 11/11/25 11/11/25 11/12/25 15:00 23:00 07:00 Intake Total 300 ml 300 ml Balance 300 ml 300 ml medications Current Medications Medications Dose Ordered Sig/Gail Route Start Time Stop Time Status Last Admin Dose Admin Metoprolol Tartrate 50 mg BID PO 11/11/25 10:00 11/12/25 09:33 50 MG Apixaban 5 mg BID PO 11/11/25 10:00 11/12/25 09:30 5 MG Valsartan 80 mg DAILY PO 11/11/25 10:00 11/12/25 09:32 80 MG Atorvastatin Calcium 20 mg HS PO 11/11/25 22:00 11/11/25 21:54 20 MG Diagnostic Test (Pha) 1 strip ACHS 11/11/25 07:00 11/12/25 11:54 1 STRIP Insulin Human Regular ACHS SC 11/11/25 07:00 11/12/25 11:53 4 UNITS Dextrose 50 ml UD PRN IV 11/11/25 01:15 Acetaminophen/ Hydrocodone Bitart 1 tab Q6HP PRN PO 11/11/25 01:15 Ondansetron HCl 4 mg Q4HP PRN IV 11/11/25 01:15 Acetaminophen 650 mg Q6HP PRN PO 11/11/25 01:15 Nitroglycerin 0.4 mg Q5MINP PRN SL 11/11/25 01:15 Morphine Sulfate 2 mg Q30M PRN IV 11/11/25 01:15 Furosemide 40 mg BIDD IV 11/11/25 18:00 11/12/25 05:57 40 MG Insulin Human Lispro 3 units AC SC 11/11/25 17:00 11/12/25 11:53 3 UNITS Empaglifozin 10 mg DAILY PO 11/11/25 16:00 11/12/25 09:33 10 MG Famotidine 20 mg Q12HR PO 11/12/25 10:00 11/12/25 09:32 20 MG Loratadine 10 mg DAILY PO 11/12/25 10:00 11/12/25 09:33 10 MG Fluticasone Propionate 50 mcg Q12HR EACHNOSTRI 11/11/25 22:00 11/12/25 11:50 50 MCG Insulin Glargine 22 units HS SC 11/12/25 17:00 Examination Skin - Patients skin is warm and dry. HEENT - normocephalic, atraumatic, moist mucous membranes, no scleral icterus, no conjunctival pallor. Neck - full ROM, no LAD, mildly elevated jugular venous pulsation Pulmonary - B/L clear breath sounds with a minimal basilar rales cardiovascular - regular S1,S2 heard. pedal 2+. Bilateral lower extremity 2+ pitting edema GI - soft, nontender abdomen. no hepatospleenomegaly. Bowel sounds normoactive Neurological - Patient is A/O X 4 . Bilateral upper extremity strength 5/5, bilateral lower extremity strength 5/5, no facial droop laboratory and microbiology Laboratory Tests 11/12/25 05:42 Test 11/12/25 05:42 Range/Units Serum Glucose 149 H 74-106 mg/dL Microbiology Date/Time Source Procedure Growth Status 11/11/25 17:00 Nose MRSA Screen - Final Complete Problem List/Assessment/Plan Problem List/Assessment/Plan Acute on chronic congestive heart failure with diastolic dysfunction, NYHA class III ( Echo from [facility] showed mild LVH, LVEF 65-70% with grade 2 diastolic dysfunction with a high left atrial and right atrial pressure, mild calcific MS) Arrhythmia SVT on presentation, controlled Recently diagnosed atrial fibrillation Hypertensive heart disease with heart failure Patient will be benefitted with GDMT therapy Troponin 12 BNP 297.81 Lasix IV strict I&Os Metoprolol Eliquis Valsartan, Jardiance Spironolactone Nitroglycerin sublingually for chest pain Morphine as needed for chest Monitor blood pressure and labs Insulin-dependent type 2 diabetes mellitus Mixed hyperlipidemia Monitor blood sugar Basal bolus insulin Atorvastatin HbA1c 10.8 Anemia of chronic disease On admission, HGB 10.6, HCT 33.4, MCV 83.1, RDW 15.5 No active signs syndrome bleeding Chronic persistent cough X-ray chest shows no acute cardiopulmonary disease QuantiFERON TB gold test Influenza and COVID test-negative Famotidine Fluticasone nasal Loratadine GI prophylaxis: Famotidine Diet: Carbohydrate consistent DVT prophylaxis: Eliquis Goals of care discussion. More than 19 minute spent with patient, Case discussed with Dr. Casillas Plan discussed with: Patient, Other (Nurse) Visit Coding STANDARD RES Billing Provider: CLEVE CASILLAS MD Date of Service if different f: Nov 12, 2025 Common Visit Codes: [id number] INP/OBS CARE (HIGH) Secondary Visit Codes: [id number] CARE PLAN 30 MINUTES ANA YIP RESIDENT Nov 12, 2025 17:47
[2025-11-12] MEDS: SPIRONOLACTONE 25 MG TAB PO ONE (18:02)
[2025-11-13] VITALS (9 sets, daily range): BP systolic 116–142; BP diastolic 39–83; PULSE 57–68; RESP 15–67; TEMP 97.5–98.5; O2SAT 18–100
[2025-11-13] MEDS: METOPROLOL TARTRATE 1MG/1ML-5ML VIAL IV ONE ×2 (02:27)
[2025-11-13 06:54] LABS: Hematocrit 34.0 % (36.0-46.0); Hemoglobin 10.9 g/dL (12.2-16.2); Mean Corpuscular Hemoglobin 26.7 pg (28.0-32.0); Mean Corpuscular Volume 83.0 fL (80.0-100.0); Nucleated Red Blood Cells % 0.3 %
[2025-11-13 07:06] LABS: Anion Gap 13 (5-15); Sodium 142 mmol/L (136-145)
[2025-11-13 07:12] LABS: BUN/Creatinine Ratio 22.2 (10.0-20.0); Blood Urea Nitrogen 22 mg/dL (9-23)
[2025-11-13 07:18] LABS: Calcium 10.5 mg/dL (8.7-10.4); Carbon Dioxide 35 mmol/L (20-31); Chloride 94 mmol/L (98-107); Glucose 204 mg/dL (74-106); Potassium 3.1 mmol/L (3.5-5.1)
[2025-11-13] MEDS: POTASSIUM CHL 20MEQ/100ML 100 ML IV ONE (09:09)
[2025-11-13] MEDS: POTASSIUM CHL 20 Meq TABLET PO ONE (09:10)
[2025-11-13] MEDS: SPIRONOLACTONE 25 MG TAB PO SCH (09:26)
[2025-11-13] MEDS: METOPROLOL TARTRATE 50 MG TAB PO SCH (12:15)
--- NOTE | 2025-11-13 16:40 | DVHPNRES ---
Progress Note Date Seen: Nov 13, 2025 Resident Creating Document: ANA YIP RESIDENT Medical Necessity Reason Pt with a Central, PICC or Fol: No Subjective Review of Systems This is a 75-year-old female brought to hospital with a chief complaint of chest pain associated with shortness of breaths. Recently discharged from [facility] with diagnosed atrial failure and congestive heart failure. Patient chest pain day before admission which is 7/10 intensity, aggravated on walking or exercise, no relieving factor, the chest wall but no radiation. Patient also bilateral leg swelling for week which is worsen day by day. Patient also having orthopnea, exertional dyspnea. On arrival EKG shows supraventricular shows sinus rhythm with a PACs and letter it sinus rhythm after metoprolol given. Patient admitted on telemetry and cardiology consulted for atrial fibrillation and rate controlled. Patient history of to SVT last year follow-up with cardiology( dr. Almaraz) not on any medication. Past Medical History AFib, hypertension, SVT, dyslipidemia, diabetes mellitus, CHF Family History : Noncontributory Personal history: PCP smoker( smoking) Drugs: Denies any EtOH or illicit drug use Allergy: No known allergy PCP: Dr. Hinton. Patient seen and evaluated in bedside today. Patient denies any new complaint. Patient cough improving. Daughter in bedside and discussed with management plan. Cardiology consult appreciated Objective vital signs Vital Sign Date Time Temp Pulse Resp B/P (MAP) Pulse Ox O2 Delivery O2 Flow Rate FiO2 11/13/25 13:00 97.6 65 18 119/66 (83) 97 97.6 11/13/25 07:56 Nasal Cannula* 3 32 Total Intake and Output 11/12/25 11/12/25 11/13/25 15:00 23:00 07:00 Intake Total 1240 ml 540 ml Output Total 900 ml Balance 340 ml 540 ml medications Current Medications Medications Dose Ordered Sig/Gail Route Start Time Stop Time Status Last Admin Dose Admin Apixaban 5 mg BID PO 11/11/25 10:00 11/13/25 09:10 5 MG Valsartan 80 mg DAILY PO 11/11/25 10:00 11/13/25 09:26 80 MG Atorvastatin Calcium 20 mg HS PO 11/11/25 22:00 11/12/25 21:49 20 MG Diagnostic Test (Pha) 1 strip ACHS 11/11/25 07:00 11/13/25 11:30 1 STRIP Insulin Human Regular ACHS SC 11/11/25 07:00 11/13/25 12:08 6 UNITS Dextrose 50 ml UD PRN IV 11/11/25 01:15 Acetaminophen/ Hydrocodone Bitart 1 tab Q6HP PRN PO 11/11/25 01:15 Ondansetron HCl 4 mg Q4HP PRN IV 11/11/25 01:15 Acetaminophen 650 mg Q6HP PRN PO 11/11/25 01:15 Nitroglycerin 0.4 mg Q5MINP PRN SL 11/11/25 01:15 Morphine Sulfate 2 mg Q30M PRN IV 11/11/25 01:15 Furosemide 40 mg BIDD IV 11/11/25 18:00 11/13/25 06:12 40 MG Insulin Human Lispro 3 units AC SC 11/11/25 17:00 11/13/25 12:08 3 UNITS Empaglifozin 10 mg DAILY PO 11/11/25 16:00 11/13/25 09:26 10 MG Famotidine 20 mg Q12HR PO 11/12/25 10:00 11/13/25 09:09 20 MG Loratadine 10 mg DAILY PO 11/12/25 10:00 11/13/25 09:10 10 MG Fluticasone Propionate 50 mcg Q12HR EACHNOSTRI 11/11/25 22:00 11/13/25 09:37 50 MCG Insulin Glargine 22 units HS SC 11/12/25 17:00 11/12/25 21:40 22 UNITS Spironolactone 25 mg DAILY PO 11/13/25 10:00 11/13/25 09:26 25 MG Metoprolol Tartrate 100 mg BID PO 11/13/25 12:15 Examination General appearance: Obese, not in acute distress Skin - Patients skin is warm and dry. HEENT - normocephalic, atraumatic, moist mucous membranes, no scleral icterus, no conjunctival pallor. Neck - full ROM, no LAD, mildly elevated jugular venous pulsation Pulmonary - B/L clear breath sounds with a minimal basilar rales cardiovascular - regular S1,S2 heard. pedal 2+. Bilateral lower extremity + pitting edema GI - soft, nontender abdomen. no hepatospleenomegaly. Bowel sounds normoactive Neurological - Patient is A/O X 4 . Bilateral upper extremity strength 5/5, bilateral lower extremity strength 5/5, no facial droop laboratory and microbiology Laboratory Tests 11/13/25 04:56 Test 11/13/25 04:56 Range/Units Serum Glucose 204 H 74-106 mg/dL Microbiology Date/Time Source Procedure Growth Status 11/11/25 17:00 Nose MRSA Screen - Final Complete Problem List/Assessment/Plan Problem List/Assessment/Plan Acute on chronic congestive heart failure with diastolic dysfunction, NYHA class III ( Echo from [facility] showed mild LVH, LVEF 65-70% with grade 2 diastolic dysfunction with a high left atrial and right atrial pressure, mild calcific MS) Arrhythmia SVT on presentation, controlled Recently diagnosed atrial fibrillation Hypertensive heart disease with heart failure Patient will be benefitted with GDMT therapy Troponin 12 BNP 297.81 Lasix IV strict I&Os Metoprolol Eliquis Valsartan, Jardiance Spironolactone Nitroglycerin sublingually for chest pain Morphine as needed for chest Monitor blood pressure and labs Hypokalemia likely due to diuretic use Potassium level 3.1 Supplemented BMP Insulin-dependent type 2 diabetes mellitus Mixed hyperlipidemia Monitor blood sugar Basal bolus insulin Atorvastatin HbA1c 10.8 Monitor blood sugars Insulin sliding dose Anemia of chronic disease On admission, HGB 10.6, HCT 33.4, MCV 83.1, RDW 15.5 No active signs syndrome bleeding Chronic persistent cough X-ray chest shows no acute cardiopulmonary disease QuantiFERON TB gold test Influenza and COVID test-negative Famotidine Fluticasone nasal Loratadine GI prophylaxis: Famotidine Diet: Carbohydrate consistent DVT prophylaxis: Eliquis Goals of care discussion. More than 23 minute spent with patient, Case discussed with Dr. Casillas Plan discussed with: Patient, Daughter, Other (Nurse) My Orders My Orders Orders - ANA YIP Procedure Category Date Status Time Spironolactone PHA 11/13/25 In Process (Aldactone) 10:00 Visit Coding STANDARD RES Billing Provider: CLEVE CASILLAS MD Date of Service if different f: Nov 13, 2025 ANA YIP Nov 13, 2025 16:40
[2025-11-13] MEDS: INSULIN LISPRO (HUMAN) 100 UNITS/ML ML SC SCH (17:00)
[2025-11-13] MEDS: INSULIN LANTUS (GLARGINE) 1 /0.01ml (100units/ml) SC SCH (17:51)
[2025-11-14] VITALS (8 sets, daily range): BP systolic 105–135; BP diastolic 50–82; PULSE 52–81; RESP 16–19; TEMP 97.4–98.1; O2SAT 94–99
[2025-11-14 06:42] LABS: Hematocrit 34.6 % (36.0-46.0); Hemoglobin 11.3 g/dL (12.2-16.2); Mean Corpuscular Hemoglobin 27.0 pg (28.0-32.0); Mean Corpuscular Volume 82.9 fL (80.0-100.0)
[2025-11-14 06:49] LABS: Anion Gap 10 (5-15); Sodium 145 mmol/L (136-145)
[2025-11-14 06:50] LABS: Calcium 10.2 mg/dL (8.7-10.4)
[2025-11-14 06:51] LABS: Carbon Dioxide 38 mmol/L (20-31); Chloride 97 mmol/L (98-107); Potassium 3.1 mmol/L (3.5-5.1)
[2025-11-14 06:55] LABS: BUN/Creatinine Ratio 25.9 (10.0-20.0); Blood Urea Nitrogen 22 mg/dL (9-23); Glucose 93 mg/dL (74-106)
[2025-11-14 07:59] LABS: Total Cells Counted 100.0 (100)
[2025-11-14] MEDS: POTASSIUM CHL 20 Meq TABLET PO ONE (10:14)
--- NOTE | 2025-11-14 10:22 | ECG ---
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
[2025-11-14] MEDS: FUROSEMIDE 40 MG/4 ML VIAL IV SCH (13:53)
--- NOTE | 2025-11-14 14:23 | DVHPNRES ---
Progress Note Date Seen: Nov 14, 2025 Resident Creating Document: CAROLINA WOODS RESIDENT Medical Necessity Reason Pt with a Central, PICC or Fol: No Subjective Review of Systems This is a 75-year-old female brought to hospital with a chief complaint of chest pain associated with shortness of breaths. Recently discharged from [facility] with diagnosed atrial failure and congestive heart failure. Patient chest pain day before admission which is 7/10 intensity, aggravated on walking or exercise, no relieving factor, the chest wall but no radiation. Patient also bilateral leg swelling for week which is worsen day by day. Patient also having orthopnea, exertional dyspnea. On arrival EKG shows supraventricular shows sinus rhythm with a PACs and letter it sinus rhythm after metoprolol given. Patient admitted on telemetry and cardiology consulted for atrial fibrillation and rate controlled. Patient history of to SVT last year follow-up with cardiology( dr. Almaraz) not on any medication. Past Medical History AFib, hypertension, SVT, dyslipidemia, diabetes mellitus, CHF Family History : Noncontributory Personal history: PCP smoker( smoking) Drugs: Denies any EtOH or illicit drug use Allergy: No known allergy PCP: Dr. Hinton. 11/14: Patient seen at bedside. Per nurse, no adverse events overnight to report. She is afebrile, normal cardiac, blood pressure within normal range, saturating on 3 L oxygen. Labs are stable, hypokalemia seen for which oral potassium has been given. Lasix dose has been increased, acetazolamide once we will be given. Objective vital signs Vital Sign Date Time Temp Pulse Resp B/P (MAP) Pulse Ox O2 Delivery O2 Flow Rate FiO2 11/14/25 13:53 132/83 11/14/25 12:50 98.0 61 17 96 98.0 11/14/25 08:00 Nasal Cannula* 3 32 Total Intake and Output 11/13/25 11/13/25 11/14/25 15:00 23:00 07:00 Intake Total 100 ml 700 ml 60 ml Balance 100 ml 700 ml 60 ml medications Current Medications Medications Dose Ordered Sig/Gail Route Start Time Stop Time Status Last Admin Dose Admin Apixaban 5 mg BID PO 11/11/25 10:00 11/14/25 10:13 5 MG Valsartan 80 mg DAILY PO 11/11/25 10:00 11/14/25 10:12 80 MG Atorvastatin Calcium 20 mg HS PO 11/11/25 22:00 11/13/25 21:51 20 MG Diagnostic Test (Pha) 1 strip ACHS 11/11/25 07:00 11/14/25 11:30 1 STRIP Insulin Human Regular ACHS SC 11/11/25 07:00 11/14/25 12:19 6 UNITS Dextrose 50 ml UD PRN IV 11/11/25 01:15 Acetaminophen/ Hydrocodone Bitart 1 tab Q6HP PRN PO 11/11/25 01:15 Ondansetron HCl 4 mg Q4HP PRN IV 11/11/25 01:15 Acetaminophen 650 mg Q6HP PRN PO 11/11/25 01:15 Nitroglycerin 0.4 mg Q5MINP PRN SL 11/11/25 01:15 Morphine Sulfate 2 mg Q30M PRN IV 11/11/25 01:15 Empaglifozin 10 mg DAILY PO 11/11/25 16:00 11/14/25 10:13 10 MG Famotidine 20 mg Q12HR PO 11/12/25 10:00 11/14/25 10:13 20 MG Loratadine 10 mg DAILY PO 11/12/25 10:00 11/14/25 10:13 10 MG Fluticasone Propionate 50 mcg Q12HR EACHNOSTRI 11/11/25 22:00 11/14/25 10:00 50 MCG Spironolactone 25 mg DAILY PO 11/13/25 10:00 11/14/25 10:13 25 MG Metoprolol Tartrate 100 mg BID PO 11/13/25 12:15 11/13/25 22:01 100 MG Insulin Glargine 25 units HS SC 11/13/25 16:45 11/13/25 21:55 25 UNITS Insulin Human Lispro 5 units AC SC 11/13/25 16:45 11/14/25 12:20 5 UNITS Furosemide 80 mg BIDD IV 11/14/25 12:15 11/14/25 13:53 80 MG Examination General: The patient alert and oriented in person place and time. Patient following commands HEENT: Normocephalic, atraumatic, normal reactive pupils, EOM intact, pink conjunctiva, pink moist mucous membrane, mildly elevated jugular venous pulsation Respiratory/pulmonary: Bilateral chest expansion, no pain on palpation of chest wall, rales are heard on auscultation Cardiovascular: Normal RRR, normal S1 and S2, no murmurs Abdomen: Abdomen nondistended, normal bowel sounds, soft, there is no pain to palpation in any of the abdominal quadrants, no palpable masses. Extremities: No deformities, +1 pitting edema is observed on bilateral lower extremities, normal pulses Skin: No rashes or pruritus, there is no sacral edema present at this time. Neurological: Intact cranial nerves with no focal neurologic deficits laboratory and microbiology Laboratory Tests 11/14/25 05:16 Test 11/14/25 05:16 Range/Units Serum Glucose 93 74-106 mg/dL Microbiology Date/Time Source Procedure Growth Status 11/11/25 17:00 Nose MRSA Screen - Final Complete Problem List/Assessment/Plan Problem List/Assessment/Plan Acute on chronic congestive heart failure with diastolic dysfunction, NYHA class III (HFpEF) ( Echo from [facility] showed mild LVH, LVEF 65-70% with grade 2 diastolic dysfunction with a high left atrial and right atrial pressure, mild calcific MS) Arrhythmia SVT on presentation, controlled Recently diagnosed atrial fibrillation Hypertensive heart failure -Patient will be benefitted with GDMT therapy -Troponin 12 -BNP 297.81 -Lasix IV -strict I&Os -Metoprolol -Eliquis -Valsartan, -Jardiance -Spironolactone -Nitroglycerin sublingually for chest pain -Morphine as needed for chest -Monitor blood pressure and labs Insulin-dependent type 2 diabetes mellitus -Mixed hyperlipidemia -Monitor blood sugar -Basal bolus insulin -Atorvastatin -HbA1c 10.8 Anemia of chronic disease -On admission, HGB 10.6, HCT 33.4, MCV 83.1, RDW 15.5 -No active signs syndrome bleeding Chronic persistent cough -X-ray chest shows no acute cardiopulmonary disease -QuantiFERON TB gold test -Influenza and COVID test-negative -Famotidine -Fluticasone nasal -Loratadine GI prophylaxis: Famotidine Diet: Carbohydrate consistent DVT prophylaxis: Eliquis Goals of care discussion. More than 24 minute spent with patient, FULL CODE Case discussed with Dr. Phillip Plan discussed with: Patient, Daughter, Other (Nurse) Visit Coding STANDARD RES Billing Provider: YEHUDA PHILLIP DO Date of Service if different f: Nov 14, 2025 Common Visit Codes: [id number] INP/OBS CARE(MOD) CAROLINA WOODS RESIDENT Nov 14, 2025 14:23
[2025-11-14] MEDS: acetaZOLAMIDE SODIUM 500 MG VL IV ONE (15:18)
[2025-11-15] VITALS (9 sets, daily range): BP systolic 89–134; BP diastolic 37–84; PULSE 50–66; RESP 14–18; TEMP 97.4–98.2; O2SAT 91–99
[2025-11-15 06:23] LABS: Hemoglobin 11.5 g/dL (12.2-16.2)
[2025-11-15 06:26] LABS: Hematocrit 35.8 % (36.0-46.0); Mean Corpuscular Hemoglobin 26.8 pg (28.0-32.0); Mean Corpuscular Volume 83.1 fL (80.0-100.0); Nucleated Red Blood Cells % 0.2 %
[2025-11-15 06:30] LABS: Chloride 99 mmol/L (98-107); Sodium 144 mmol/L (136-145)
[2025-11-15 06:31] LABS: Calcium 9.9 mg/dL (8.7-10.4)
[2025-11-15 06:36] LABS: BUN/Creatinine Ratio 21.7 (10.0-20.0); Blood Urea Nitrogen 20 mg/dL (9-23)
[2025-11-15 06:37] LABS: Glucose 137 mg/dL (74-106); Potassium 3.2 mmol/L (3.5-5.1)
[2025-11-15] MEDS: POTASSIUM CHL 20 Meq TABLET PO ONE (06:40)
[2025-11-15 06:41] LABS: Anion Gap 11 (5-15)
[2025-11-15 06:44] LABS: Carbon Dioxide 34 mmol/L (20-31)
[2025-11-15] MEDS: POTASSIUM EFFERVESENT TAB 25 MEQ PO ONE (09:00)
[2025-11-15 15:07] LABS: Base Excess 7.9 mmol/L (-2.0-3.0)
--- NOTE | 2025-11-15 16:36 | DVHPNRES ---
Progress Note Date Seen: Nov 15, 2025 Resident Creating Document: ANA YIP RESIDENT Medical Necessity Reason Pt with a Central, PICC or Fol: No Subjective Review of Systems This is a 75-year-old female brought to hospital with a chief complaint of chest pain associated with shortness of breaths. Recently discharged from [facility] with diagnosed atrial failure and congestive heart failure. Patient chest pain day before admission which is 7/10 intensity, aggravated on walking or exercise, no relieving factor, the chest wall but no radiation. Patient also bilateral leg swelling for week which is worsen day by day. Patient also having orthopnea, exertional dyspnea. On arrival EKG shows supraventricular shows sinus rhythm with a PACs and letter it sinus rhythm after metoprolol given. Patient admitted on telemetry and cardiology consulted for atrial fibrillation and rate controlled. Patient history of to SVT last year follow-up with cardiology( dr. Vieira) not on any medication. Past Medical History AFib, hypertension, SVT, dyslipidemia, diabetes mellitus, CHF Family History : Noncontributory Personal history: PCP smoker( smoking) Drugs: Denies any EtOH or illicit drug use Allergy: No known allergy PCP: Dr. Hinton. Patient seen and evaluated in bedside today. Patient currently denies any acute symptoms. Patient bilateral leg edema significantly improving, continue IV diuretics. Patient using oxygen at nighttime. 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 Objective vital signs Vital Sign Date Time Temp Pulse Resp B/P (MAP) Pulse Ox O2 Delivery O2 Flow Rate FiO2 11/15/25 12:39 97.4 55 18 107/68 (81) 93 97.4 11/15/25 08:00 Nasal Cannula* 3 32 Total Intake and Output 11/14/25 11/14/25 11/15/25 15:00 23:00 07:00 Intake Total 500 ml 1100 ml Balance 500 ml 1100 ml medications Current Medications Medications Dose Ordered Sig/Gail Route Start Time Stop Time Status Last Admin Dose Admin Apixaban 5 mg BID PO 11/11/25 10:00 11/15/25 10:56 5 MG Valsartan 80 mg DAILY PO 11/11/25 10:00 11/14/25 10:12 80 MG Atorvastatin Calcium 20 mg HS PO 11/11/25 22:00 11/14/25 21:45 20 MG Diagnostic Test (Pha) 1 strip ACHS 11/11/25 07:00 11/15/25 06:18 1 STRIP Insulin Human Regular ACHS SC 11/11/25 07:00 11/14/25 21:39 10 UNITS Dextrose 50 ml UD PRN IV 11/11/25 01:15 Acetaminophen/ Hydrocodone Bitart 1 tab Q6HP PRN PO 11/11/25 01:15 Ondansetron HCl 4 mg Q4HP PRN IV 11/11/25 01:15 Acetaminophen 650 mg Q6HP PRN PO 11/11/25 01:15 Nitroglycerin 0.4 mg Q5MINP PRN SL 11/11/25 01:15 Morphine Sulfate 2 mg Q30M PRN IV 11/11/25 01:15 Empaglifozin 10 mg DAILY PO 11/11/25 16:00 11/15/25 10:56 10 MG Famotidine 20 mg Q12HR PO 11/12/25 10:00 11/15/25 10:56 20 MG Loratadine 10 mg DAILY PO 11/12/25 10:00 11/15/25 10:56 10 MG Fluticasone Propionate 50 mcg Q12HR EACHNOSTRI 11/11/25 22:00 11/15/25 10:56 50 MCG Spironolactone 25 mg DAILY PO 11/13/25 10:00 11/15/25 10:56 25 MG Metoprolol Tartrate 100 mg BID PO 11/13/25 12:15 11/14/25 21:45 100 MG Insulin Glargine 25 units HS SC 11/13/25 16:45 11/14/25 21:37 25 UNITS Insulin Human Lispro 5 units AC SC 11/13/25 16:45 11/14/25 18:06 5 UNITS Furosemide 80 mg BIDD IV 11/14/25 12:15 11/15/25 06:38 80 MG Examination General: The patient alert and oriented in person place and time. Patient following commands HEENT: Normocephalic, atraumatic, normal reactive pupils, EOM intact, pink conjunctiva, pink moist mucous membrane. Respiratory/pulmonary: Bilateral chest expansion, no pain on palpation of chest wall, rales are heard on auscultation Cardiovascular: Normal RRR, normal S1 and S2, no murmurs Abdomen: Abdomen nondistended, normal bowel sounds, soft, there is no pain to palpation in any of the abdominal quadrants, no palpable masses. Extremities: No deformities, +1 pitting edema is observed on bilateral lower extremities, normal pulses Skin: No rashes or pruritus, there is no sacral edema present at this time. Neurological: Intact cranial nerves with no focal neurologic deficits laboratory and microbiology Laboratory Tests 11/15/25 05:34 Test 11/15/25 05:34 Range/Units Serum Glucose 137 H 74-106 mg/dL Microbiology Date/Time Source Procedure Growth Status 11/11/25 17:00 Nose MRSA Screen - Final Complete Problem List/Assessment/Plan Problem List/Assessment/Plan Acute on chronic congestive heart failure with diastolic dysfunction, NYHA class III ( Echo from [facility] showed mild LVH, LVEF 65-70% with grade 2 diastolic dysfunction with a high left atrial and right atrial pressure, mild calcific MS) Arrhythmia SVT on presentation, controlled Recently diagnosed atrial fibrillation Hypertensive heart disease with heart failure Patient will be benefitted with GDMT therapy Troponin 12 BNP 297.81 Lasix IV strict I&Os Metoprolol Eliquis Valsartan, Jardiance Spironolactone Nitroglycerin sublingually for chest pain Morphine as needed for chest Monitor blood pressure and labs Hypokalemia likely due to diuretic use Potassium level 3.2 Supplemented BMP Insulin-dependent type 2 diabetes mellitus Mixed hyperlipidemia Monitor blood sugar Basal bolus insulin Atorvastatin HbA1c 10.8 Monitor blood sugars Insulin sliding dose Anemia of chronic disease On admission, HGB 10.6, HCT 33.4, MCV 83.1, RDW 15.5 No active signs syndrome bleeding Acute on chronic hypoxic respiratory failure secondary to heart failure Chronic persistent cough Patient is desatting during sleep, need oxygen via nasal cannula ABG on 11/15/2025: PH 7.46, pCO2 46.1, PaO2 56.8, SaO2 86.9 Patient will benefitted with home oxygen. QuantiFERON TB gold test Influenza and COVID test-negative Famotidine Fluticasone nasal Loratadine GI prophylaxis: Famotidine Diet: Carbohydrate consistent DVT prophylaxis: Eliquis Goals of care discussion. More than 21 minute spent with patient, Case discussed with Dr. Phillip Plan discussed with: Patient, Daughter, Other (nurse) My Orders My Orders Orders - ANA YIP RESIDENT Procedure Category Date Status Time Abg W/ Co-Ox RT 11/15/25 Logged 11:42 * Varnish Dipper CONS 11/15/25 Transmitted Consult Visit Coding STANDARD RES Billing Provider: YEHUDA PHILLIP DO Date of Service if different f: Nov 15, 2025 Common Visit Codes: 79863-[id number] INP/OBS CARE(MOD) Secondary Visit Codes: 21350-[id number] CARE PLAN 30 MINUTES ANA YIP RESIDENT Nov 15, 2025 16:36
[2025-11-16 00:44] VITALS: BP 130/81; PULSE 51; RESP 17; TEMP 98.9; O2SAT 94
[2025-11-16 05:00] VITALS: BP 133/73; PULSE 51; RESP 18; TEMP 97.7; O2SAT 100
[2025-11-16 06:23] LABS: Nucleated Red Blood Cells % 0.1 %
[2025-11-16 06:27] LABS: Hematocrit 37.2 % (36.0-46.0); Hemoglobin 11.9 g/dL (12.2-16.2); Mean Corpuscular Hemoglobin 26.6 pg (28.0-32.0); Mean Corpuscular Volume 83.4 fL (80.0-100.0)
[2025-11-16 06:41] LABS: Chloride 99 mmol/L (98-107); Potassium 3.8 mmol/L (3.5-5.1); Sodium 142 mmol/L (136-145)
[2025-11-16 06:42] LABS: Anion Gap 9 (5-15); Calcium 9.7 mg/dL (8.7-10.4)
[2025-11-16 06:47] LABS: BUN/Creatinine Ratio 18.5 (10.0-20.0); Blood Urea Nitrogen 22 mg/dL (9-23)
[2025-11-16 06:48] LABS: Carbon Dioxide 34 mmol/L (20-31); Glucose 119 mg/dL (74-106)
[2025-11-16 08:00] VITALS: PULSE 60; RESP 17; O2SAT 95
[2025-11-16 09:00] VITALS: BP 118/60; PULSE 60; RESP 17; TEMP 98.1; O2SAT 95
[2025-11-16] MEDS ORDERED: MET50T PO (15:20)
[2025-11-16] MEDS ORDERED: FLUT50SP EACHNOSTRI (15:20)
[2025-11-16] MEDS ORDERED: LORA-622 PO (15:20)
[2025-11-16] MEDS ORDERED: APIX5TAB PO (15:20)
[2025-11-16] MEDS ORDERED: FAMO20TA10 PO (15:20)
--- NOTE | 2025-11-16 18:25 | DVHDSRES ---
Discharge Summary Date of Admission Resident Creating Document: ANA YIP RESIDENT Nov 11, 2025 at 01:06 Date of Discharge: Nov 16, 2025 Labs/Diagnostic Data: Laboratory Results Test 11/16/25 11:00 11/16/25 05:54 11/15/25 14:25 11/15/25 05:34 POC Glucose 337 mg/dl (70-106) White Blood Count 6.0 10^3/uL (4.4-10.8) Red Blood Count 4.47 10^6/uL (4.0-5.20) Hemoglobin 11.9 g/dL (12.2-16.2) Hematocrit 37.2 % (36.0-46.0) Mean Corpuscular Volume 83.4 fL (80.0-100.0) Mean Corpuscular Hemoglobin 26.6 pg (28.0-32.0) Mean Corpuscular Hemoglobin Concent 31.9 g/dL (32.0-36.0) Red Cell Distribution Width 14.9 % (11.8-14.3) Platelet Count 134 10^3/uL (140-450) Mean Platelet Volume 10.4 fL (6.9-10.8) Neutrophils (%) (Auto) 45.8 % (37.0-80.0) Lymphocytes (%) (Auto) 37.9 % (10.0-50.0) Monocytes (%) (Auto) 12.7 % (0.0-12.0) Eosinophils (%) (Auto) 3.1 % (0.0-7.0) Basophils (%) (Auto) 0.5 % (0.0-2.0) Neutrophils # (Auto) 2.7 10 ^3/uL (1.6-8.6) Lymphocytes # (Auto) 2.3 10 ^3/uL (0.4-5.4) Monocytes # (Auto) 0.8 10 ^3/uL (0-1.3) Eosinophils # (Auto) 0.2 10 ^3/uL (0-0.8) Basophils # (Auto) 0 10 ^3/uL (0-0.2) Nucleated Red Blood Cells 0.1 % Sodium Level 142 mmol/L (136-145) Potassium Level 3.8 mmol/L (3.5-5.1) Chloride Level 99 mmol/L (98-107) Carbon Dioxide Level 34 mmol/L (20-31) Anion Gap 9 (5-15) Blood Urea Nitrogen 22 mg/dL (9-23) Creatinine 1.19 mg/dL (0.550-1.02) Glomerular Filtration Rate Calc 47 mL/min (>90) BUN/Creatinine Ratio 18.5 (10.0-20.0) Serum Glucose 119 mg/dL (74-106) Calcium Level 9.7 mg/dL (8.7-10.4) Blood Gas Specimen Type Arterial Blood Gas Sample Site Left radial Blood Gas Patient Temperature 37.0 Arterial Blood Date Drawn Arterial Blood pH 7.469 (7.350-7.450) Arterial Blood Partial Pressure CO2 46.1 mmHg (32.0-45.0) Arterial Blood Partial Pressure O2 56.8 mmHg (83.0-108.0) Arterial Blood HCO3 32.7 mmol/L (21.0-28.0) Arterial Blood Oxygen Saturation 86.9 % (94.0-98.0) Arterial Blood Base Excess 7.9 mmol/L (-2.0-3.0) Arterial Blood Oxyhemoglobin 85.9 % (94.0-98.0) Arterial Blood Carboxyhemoglobin 0.8 % (0.5-1.5) Arterial Blood Methemoglobin 0.4 % (0.0-1.5) Arterial Blood Deoxyhemoglobin 12.9 % (0.0-5.0) Ariel Test Yes Blood Gas Total Hemoglobin 13.30 g/dL (12.0-16.0) Blood Gas Modality Room air FiO2 % 21.0 Magnesium Level 2.0 mg/dL (1.6-2.6) Test 11/14/25 05:16 11/13/25 04:56 11/12/25 05:42 11/11/25 17:24 Differential Total Cells Counted 100.0 (100) Neutrophils % (Manual) 53 (37.0-80.0) Band Neutrophils % (Manual) 0 Lymphocytes % (Manual) 36 (10.0-50.0) Monocytes % (Manual) 10 (0-12) Eosinophils % (Manual) 1 (0-7) Basophils % (Manual) 0 (0.0-2.0) Metamyelocytes % (manual) 0 Myelocytes % (Manual) 0 Promyelocytes % (Manual) 0 Blast Cells % (Manual) 0 Reactive Lymphocytes 0 Platelet Estimate Decreased Large Platelets Few Total Bilirubin 0.7 mg/dL (0.2-1.0) Aspartate Amino Transferase (AST) 37 U/L (13-40) Alanine Aminotransferase (ALT) 28 U/L (7-40) Alkaline Phosphatase 121 U/L (46-116) Total Protein 6.8 g/dL (5.7-8.2) Albumin 3.7 g/dL (3.2-4.8) TB Test (QFT) Gold Plus Negative (Negative) TB Test (QFT) Nil 0.11 IU/mL (.) TB Test (QFT) Mitogen >10.00 IU/mL (.) TB Test (QFT) Antigen 1 0.15 IU/mL (.) TB Test (QFT) Antigen 2 0.10 IU/mL (.) TB Test (QFT) Criteria Comment (.) Test 11/11/25 17:00 11/11/25 05:09 11/11/25 01:31 11/11/25 00:59 Influenza Type A Antigen Negative (Negative) Influenza Type B Antigen Negative (Negative) SARS-CoV-2 Antigen (Rapid) Negative (NEGATIVE) Hemoglobin A1c 10.8 % A1C (<5.7) Vitamin B12 Level 215 pg/mL (211-911) Vitamin D 25-Hydroxy 46.1 ng/mL (30.0-100) Thyroid Stimulating Hormone (TSH) 1.24 uIU/mL (0.55-4.78) Urine Color Light-yellow (Yellow) Urine Clarity Turbid (Clear) Urine pH 5.0 (5.0-9.0) Urine Specific [place] 1.012 (1.001-1.035) Urine Protein Trace (Negative) Urine Ketones Negative (Negative) Urine Blood 3+ /uL (Negative) Urine Nitrite Negative (Negative) Urine Bilirubin Negative (Negative) Urine Urobilinogen Normal mg/dL (Negative) Urine Leukocyte Esterase Negative /uL (Negative) Urine RBC 225 /hpf (0 - 4) Urine Microscopic WBC 5 /HPF (0-5) Urine Squamous Epithelial Cells Few /hpf (<5) Urine Bacteria None seen /hpf (None Seen) Urine Hyaline Casts Many /lpf (0 - 2) Urine Yeast (Budding) Occasional /hpf (None Urine Glucose Trace mg/dL (Normal) Troponin I High Sensitivity 27 ng/L (</=34) Test 11/10/25 23:17 11/10/25 22:00 Blood Gas Liter Flow 2.00 Blood Gas Comments Blood Gas Critical Value Read Back Yes Blood Gas Notified Whom francheska Szymanski Blood Gas Notified Time [id number] Blood Gas Notified By Park Worker shani barnes B-Type Natriuretic Peptide 297.91 pg/mL (0-100) Beta-Hydroxybutyric Acid 0.118 mmol/L (< 0.4) Other Laboratory Tests 11/16/25 05:54 Brief Hx & Hospital Course: This is a 75-year-old female brought to hospital with a chief complaint of chest pain associated with shortness of breaths. Recently discharged from [facility] with diagnosed atrial failure and congestive heart failure. Patient chest pain day before admission which is 7/10 intensity, aggravated on walking or exercise, no relieving factor, the chest wall but no radiation. Patient also bilateral leg swelling for week which is worsen day by day. Patient also having orthopnea, exertional dyspnea. On arrival EKG shows supraventricular shows sinus rhythm with a PACs and letter it sinus rhythm after metoprolol given. Patient admitted on telemetry and cardiology consulted for atrial fibrillation and rate controlled. Patient history of to SVT last year follow-up with cardiology( dr. Vieira) not on any medication. Past Medical History AFib, hypertension, SVT, dyslipidemia, diabetes mellitus, CHF Family History : Noncontributory Personal history: PCP smoker( smoking) Drugs: Denies any EtOH or illicit drug use Allergy: No known allergy Hospital course: Patient admitted due to acute on chronic congestive heart failure with diastolic dysfunction NYHA class III. Echo from [facility] showed mild LVH, LVEF 65-70% with grade 2 diastolic dysfunction with a high left atrial and right atrial pressure, mild calcific MS. Patient treated conservatively during hospitalization. Patient admitted in telemetry and during admission EKG showed supraventricular tachycardia and started beta-roxana. Repeat EKG shows sinus rhythm with a PACs and letter show sinus rhythm. On telemetry patient was seen to be in episodes of atrial fibrillation rate controlled. Cardiology consulted Increase metoprolol 50 mg 100 mg p.o. b.i.d. patient recently diagnosed atrial fibrillation on Eliquis. X-ray chest Showed mild pulmonary vascular congestion with small left pleural effusion. Patient treated with IV Lasix for diuresis and her bilateral leg edema significantly improved and decreased exertional shortness of breath. On examination on 11/11/2025, patient denies any SOB, chest pain, cough, headache, abdominal pain, dysuria or any other acute distress. Patient we will be benefitted with outpatient sleep study. During hospitalization, patient treated both acute and chronic medical condition. Patient also having chronic cough and significantly improved with current treatment, started nasal spray, antihistamine and famotidine and advised to continue as directed. Patient is hemodynamically stable for discharge. Patient has received maximum benefit from inpatient treatment. Time was given to answer patient's questions and concerns in layman terms and explained by RN. Patient/daughter (Yuli) verbalized understanding and agreed with treatment and follow-up. Patient was recommended to return to ER if he experiences any worsening symptoms not limited to current symptoms. Follow-up with PCP and outpatient continuity clinic Sunday morning within week after discharge. Follow-up with Endocrine, Cardiology 2-4 weeks after discharge. Medications sent to the pharmacy, patient advised to resume home medication. Physical examination Constitutional: No: Fever, Chills, Sweats, Weakness, Malaise, Other Eyes: No: Pain, Vision change, Conjunctivae inflammation, Eyelid inflammation, Other, Redness ENT: No: Ear pain, Ear discharge, Nose pain, Nose discharge, Nose congestion, Mouth pain, Mouth swelling, Throat pain, Throat swelling, Other Respiratory: Shortness of breath; No: Cough, Dry, SOB with excertion, Wheezing, Hemoptysis, Pleuritic Pain, Sputum, Wheezing, Other Cardiovascular: No: Chest Pain, Palpitations, Orthopnea, Paroxysmal Noc. Dyspnea, Edema, Lt Headedness, Other Gastrointestinal: No: Nausea, Vomiting, Abdominal Pain, Diarrhea, Constipation, Melena, Hematochezia, Other Genitourinary: No Dysuria, No Frequency, No Incontinence, No Hematuria, No Retention, No Other Musculoskeletal: No: other, neck pain, shoulder pain, arm pain, back pain, hand pain, leg pain, foot pain Skin: No: Rash, Lesions, Jaundice, Bruising, Other Neurological: No: Weakness, Numbness, Incoordination, Change in speech, Confusion, Seizures, Other More than 23 minutes menstrual patient. Case discussed with patient, nurse, Dr. Casillas. Operations or Procedures ORDERING PHYSICIAN: ANA YIP RESIDENT PROCEDURE(s): CXR2 - CHEST TWO VIEWS ROUTINE REASON: cough ORDER NUMBER(s): [id number], ACCESSION NUMBER(s): [id number] XY CHEST TWO VIEWS ROUTINE CLINICAL HISTORY: cough COMPARISON: XY CHEST XRAY 1 VIEW on DOS: 11/10/25 TECHNIQUE: Frontal and lateral view of the chest was obtained FINDINGS: Lines and Tubes: None Lungs: No focal consolidation. Pleura: Small left pleural effusion Cardiomediastinal contours:Cardiomegaly Bones: No acute osseous abnormality. IMPRESSION: Mild pulmonary vascular congestion. Small left pleural effusion ATED BY: TINA CHAKRABORTY MD DICTATED DATE/TIME: 11/11/25 1322 Condition at Discharge: Stable Final Diagnosis/Problems List Acute on chronic congestive heart failure with diastolic dysfunction, NYHA class III Arrhythmia SVT on presentation, controlled Recently diagnosed atrial fibrillation Hypertensive heart disease with heart failure Acute on chronic hypoxic respiratory failure secondary to heart failure Anemia of chronic disease Insulin-dependent type 2 diabetes mellitus Mixed hyperlipidemia Hypokalemia likely due to diuretic use Discharge Disposition: Home Discharge Instruct/Medications Diet: Consistent carbohydrate Diet comment: PCP Outpatient continuity clinic Sunday morning within 2 weeks after discharge. Outpatient cardiology in [facility] Outpatient Endocrine Outpatient sleep study Activity: No Restrictions, As Tolerated Scheduled Apixaban Base (Eliquis), 5 MG PO BID Atorvastatin Calcium (Lipitor), 1 TAB PO DAILY, (Reported) Famotidine (Pepcid Tablet), 1 TAB PO BID Fluticasone Propionate (Nasal) (Fluticasone Propionate), 50 MCG EACHNOSTRI Q12HR Furosemide (Lasix), 1 TAB PO BID, (Reported) Glipizide (Glipizide), 1 TAB PO DAILY, (Reported) Insulin Glargine (Lantus), 40 UNIT SC DAILY, (Reported) Loratadine (Claritin), 1 TAB PO DAILY Metoprolol Tartrate (Lopressor Tablet), 100 MG PO BID Pioglitazone Hydrochloride (Pioglitazone Hcl), 1 TAB PO DAILY, (Reported) Valsartan-Hydrochlorothiazide (Diovan Hct), 1 TAB PO DAILY, (Reported) Miscellaneous Medications Dapagliflozin Propanediol (Farxiga), 10 MG PO, (Reported) Discontinued Medications Apixaban Base (Eliquis), 10 MG PO DAILY, (Reported) Metformin HCl (Metformin Hydrochloride), 1,000 MG PO BID, (Reported) Metformin Hydrochloride (Metformin Hcl), 1,000 MG PO DAILY, (Reported) Discontinued Reason: Prescription changed Metoprolol Tartrate (Metoprolol Tartrate), 1 TAB PO BID, (Reported) Discharge Statement: "Patient was advised to return to the ER or call 911 if any headaches, dizziness, shortness of breath, chest pain, abdominal pain, bleeding, fevers, or worsening of medical condition. Patient was counseled about treatment plan, medications, possible side effects, patientverbalized understanding. All questions were answered to the best of my ability. This discharge took greater then 30 minutes in planning, reviewing documentation, counseling the patient, and discussing with other team members." ASSESSMENT ASSESSMENT Assessment Chest pain SVT Visit Coding STANDARD RES Billing Provider: CLEVE CASILLAS MD Date of Service if different f: Nov 16, 2025 ANA YIP RESIDENT Nov 16, 2025 18:25
== END 2025-11-16 16:44 | disposition home or self-care (01) | DRG 291 ==
LOC: EDBD 21:45 → ER 21:45 → OVERFLOW 11-11 01:06 → TELE-WESTW 11-11 03:36
PROVIDERS: ADMIT Student in an Organized Health Care Education/Training Program; ATTEND Student in an Organized Health Care Education/Training Program
DX: I11.0 Hypertensive heart disease with heart failure (principal); I50.33 Acute on chronic diastolic (congestive) heart failure; J96.21 Acute and chronic respiratory failure with hypoxia; E87.3 Alkalosis; I47.10 Supraventricular tachycardia, unspecified; Z79.01 Long term (current) use of anticoagulants; D63.8 Anemia in other chronic diseases classified elsewhere; E11.65 Type 2 diabetes mellitus with hyperglycemia; Z20.822 Contact with and (suspected) exposure to COVID-19; E78.2 Mixed hyperlipidemia; E87.6 Hypokalemia; I48.91 Unspecified atrial fibrillation; Z82.49 Family history of ischemic heart disease and other diseases of the circulatory system; Z79.4 Long term (current) use of insulin; T50.2X5A Adverse effect of carbonic-anhydrase inhibitors, benzothiadiazides and other diuretics, initial encounter; Y92.89 Other specified places as the place of occurrence of the external cause
CPT/HCPCS: 36415; 36600; 71045; 71046; 80048; 80053; 81001; 82010; 82306; 82607; 82805; 82962; 83036; 83735; 83880; 84443; 84484; 85007; 85025; 85027; 86480; 87081; 87426; 87804; 93005; 99291; G0378; J1815; J3480